=== PATIENT | female | born 1965 | race Hispanic/Latino ===

== ENCOUNTER 2024-12-01 03:28 | Inpatient (IN) | payer MEDICAID ==
[~2024-12-01] VITALS: Ht 157.5 cm; Wt 88.5 kg
[~2024-12-01 03:28] MED LIST: CYAN100010 PO; FERR325C PO
--- NOTE | 2024-12-01 03:50 | ERN ---
ED Note History of Present Illness Stated Complaint: ams Chief Complaint: Altered Mental Status Time Seen by MD: 03:34 Dictation: This is a 58-year-old obese female who apparently had a fall early this morning and was evaluated at [facility] and discharged from there. Details are not available for my review. After she got home she was noted to be agitated yelling at the neighbor's and had confusion disorderly conduct and EMS was summoned again. They brought her back to [facility] for e valuation. She answers simple questions appropriately No history of any head injury abrasions lacerations. No loss of consciousness. No facial asymmetry or motor weakness. Temperature 98.4 pulse 82 respirations 18 blood pressure 98/64 with a pulse oxi metry of 98% on room air Chronic medical problems include chronic anemia, history of a cervical mass, history of seizure disorder, metabolic encephalopathy, history of alcohol abuse- patient states that she quit many years ago Allergies: Coded Allergies: No Known Drug Allergies (Verified Allergy, 11/11/11) Home Meds Reported Medications Cyanocobalamin (Vitamin B-12) (Vitamin B-12) 1,000 Mcg Tablet.er, 1000 MCG PO DAILY, TAB 07/20/14 Ferrous Sulfate (Iron) 325 Mg Capsule.er, 325 MG PO BID, CAP 07/20/14 Past Medical History Past Medical History: Seizure, Stroke, UTI Surgical History: Appendectomy Family History: Negative Social History: Negative History: Not Applicable RN Note Reviewed/Agreed w/PFSH: Yes Review of System Dictation Constitutional: Negative for fever,chills, and weight loss Eyes: Negative for injury, pain,redness, and discharge ENT: Negative for injury,pain or swelling Cardiovascular: Negative for chest pain, palpitations, and edema Respiratory: Negative for shortness of breath, cough, and wheezing, Abdomen/GI: Negative for abdominal pain, nausea, vomiting, diarrhea, and constipation Back: Negative for injury and pain : Negative for injury, bleeding and discharge MS/Extremity: Negative for injury and deformity Skin: Negative for rash, and discoloration Neuro: Negative for headache, weakness, numbness, tingling, and seizure Psych: Negative for suicide ideation, homicidal ideation, and hallucinations Initial Vital Sign VS Vital Signs Date Time Temp Pulse Resp B/P (MAP) Pulse Ox O2 Delivery O2 Flow Rate FiO2 12/01/24 03:30 98.4 82 18 98/64 98 Room Air* 0 21 Physical Exam Dictation General: awake, alert, NAD obese female who is answering questions appropriate Head/Face: Normocephalic, atraumatic Eyes: PERRL, EOMI, vision at baseline ENT: oral cavity clear, TMs clear, no signs of infection Neck: Trachea midline, supple, no nuchal rigidity Cardiovascular: RRR, normal S1/S2, No MRGs, no JVD Respiratory: CTAB, no respiratory distress, No rales or wheezes Abdomen: Soft, non-tender, non-distended, normal bowel sounds, no guarding or rebound. Skin: Warm, dry, normal turgor, no rash MS/Extremity: Pulses equal, no cyanosis, neurovascular intact, FROM Neuro: COAx4, GCS 15, strength 5/5, CN 2-12 intact, able to move all extremities without any issues except for the right leg which she tells me is chronically difficult to raise from her previous stroke Psych: Normal behavior, mood, and affect normal Extremities-trace edema without any palpable cords, Homans sign is negative Results (Laboratory/Radiology) Laboratory/Radiology Laboratory Tests Test 12/01/24 03:54 12/01/24 04:02 12/01/24 05:09 Urine Color YELLOW (YELLOW) Urine Appearance CLOUDY (CLEAR) H Urine pH 5.5 (5.0-8.0) Urine Specific [place] 1.026 (1.001-1.031) Urine Protein NEGATIVE mg/dL (NEGATIVE) Urine Glucose (UA) NEGATIVE mg/dL (NEGATIVE) Urine Ketones NEGATIVE mg/dL (NEGATIVE) Urine Occult Blood NEGATIVE (NEGATIVE) Urine Nitrate NEGATIVE (NEGATIVE) Urine Bilirubin NEGATIVE mg/dL (NEGATIVE) Urine Urobilinogen 0.2 mg/dL (0.2-1.0) Urine Leukocyte Esterase 75 [place]/uL (NEGATIVE) H Urine RBC 6-10 /HPF (0-1) H Urine WBC 2-5 /HPF (0-1) H Urine Squamous Epithelial Cells MANY /HPF (0-2) Urine Amorphous Crystals (Auto) RARE /LPF (None Seen) Urine Bacteria None /HPF (None Seen) Urine Opiates Screen POSITIVE (NEGATIVE) H Urine Barbiturates Screen NEGATIVE (NEGATIVE) Urine Phencyclidine Screen NEGATIVE (NEGATIVE) Urine Amphetamines Screen NEGATIVE (NEGATIVE) Urine Benzodiazepines Screen POSITIVE (NEGATIVE) H Urine Cocaine Screen NEGATIVE (NEGATIVE) Urine Marijuana (THC) Screen NEGATIVE (NEGATIVE) White Blood Count 4.0 K/uL (4.8-10.8) L Red Blood Count 3.51 MIL/uL (4.00-5.50) L Hemoglobin 10.3 g/dL (12.0-16.0) L Hematocrit 31.1 % (36-48) L Mean Corpuscular Volume 88.6 fL (79-99) Mean Corpuscular Hemoglobin 29.3 pg (27.0-33.0) Mean Corpuscular Hemoglobin Concent 33.1 g/dL (32.0-36.0) Red Cell Distribution Width 14.5 % (11.0-15.5) Platelet Count 115 K/uL (130-400) L Mean Platelet Volume 11.2 fL (7.5-10.5) H Immature Granulocyte % (Auto) 0.5 % (0-1) Neutrophils (%) (Auto) 50.9 % (40.0-77.0) Lymphocytes (%) (Auto) 37.4 % (21.0-51.0) Monocytes (%) (Auto) 7.6 % (3.0-13.0) Eosinophils (%) (Auto) 2.8 % (0.0-8.0) Basophils (%) (Auto) 0.8 % (0.0-5.0) Neutrophils # (Auto) 2.0 K/uL (1.8-7.7) Lymphocytes # (Auto) 1.5 K/uL (1.0-4.8) Monocytes # (Auto) 0.3 K/uL (0.1-1.0) Eosinophils # (Auto) 0.11 K/uL (0.00-0.70) Basophils # (Auto) 0.03 K/uL (0.00-0.20) Absolute Immature Granulocyte (auto 0.02 K/uL (0-1) Nucleated Red Blood Cells 0.0 % (0.0-0.19) Sodium Level 141 mmol/L (136-145) Potassium Level 3.5 mmol/L (3.5-5.1) Chloride Level 107 mmol/L (101-111) Carbon Dioxide Level 28 mmol/L (21-32) Blood Urea Nitrogen 16 mg/dL (7-18) Creatinine 1.0 mg/dL (0.5-1.0) Glomerular Filtration Rate Calc 66 mL/min (>90) Random Glucose 98 mg/dL (70-105) Total Calcium 8.0 mg/dL (8.5-10.1) L Total Creatine Kinase 94 U/L (21-232) Salicylates Level < 2.8 mg/dL (2.8-20.0) L Acetaminophen Level < 1 mcg/mL (10-30) L Serum Alcohol 4 mg/dL (0-10) Blood Gas Specimen Type Arterial Arterial Blood pH 7.390 (7.350-7.450) Arterial Blood Partial Pressure CO2 44 mmHg (32-45) Arterial Blood Partial Pressure O2 109.2 mmHg (83.0-108.0) H Arterial Blood HCO3 25.9 mmol/L (21.0-28.0) Arterial Blood Oxygen Saturation 97.5 % (94.0-98.0) Arterial Blood Base Excess 0.7 mmol/L (-2.0-3.0) Hemoglobin (Blood Gas) 10.9 g/dL (12.0-16.0) L Sodium (Blood Gas) 140 MMOL/L (136-145) Bedside Potassium (Blood Gas) 3.7 MMOL/L (3.4-4.5) Bedside Chloride (Blood Gas) 107 MMOL/L (98-107) Bedside Glucose (Blood Gas) 107 MG/DL (65-95) H Bedside Ionized Calcium (Blood Gas) 1.14 MMOL/L (1.15-1.33) L Bedside Lactic Acid (Blood Gas) 1.10 MMOL/L (0.36-0.75) H Blood Gas Temperature 37.0 CELSIUS (35.5-37.0) Blood Gas Flow-by 3.00 L/min (0.00-15.00) Blood Gas Vent Mode NC (ROOM AIR) FiO2 28.0 % Blood Gas Specimen Comment RR STEFAN SNOW Labs Reviewed?: Yes X-RAY Comment: REASON: AMS ORDERING PHYSICIAN: ROBIN DAY MD PROCEDURE: CXR1VW - CHEST 1VW EXAM: CR Chest, 1 view CLINICAL HISTORY: Altered mental status. COMPARISON: Chest radiograph dated 06/20/2011. FINDINGS: The lungs show no infiltrates or other acute findings. No pleural effusion or pneumothorax. Interval mild cardiomegaly. No acute osseous abnormality. IMPRESSION: Interval mild cardiomegaly. No acute infiltrate, effusion, or pneumothorax. /[place] DICTATED BY: MAHIN BARROW Jr., MD DATE: 12/01/24627 ELECTRONICALLY SIGNED BY: MAHIN BARROW Jr., MD DATE: 12/01/24627 CT Scan Comment: REASON: AMS ORDERING PHYSICIAN: ROBIN DAY MD PROCEDURE: HEAD WO - CT HEAD/BRAIN W/O CONTRAST EXAM: Non-contrast CT examination of the Brain CLINICAL HISTORY: Altered mental status. TECHNIQUE: Thin collimated axial CT images of the brain were obtained with sagittal and coronal reformatted images also submitted. CT scan is done according to ALARA (As Low as Reasonably Achievable). CONTRAST USED: None. COMPARISON: None provided. FINDINGS: Moderate generalized encephalomalacia in the right cerebral hemisphere with ex-vacuo dilatation of the right lateral ventricle. Mild to moderate generalized brain atrophy and chronic microvascular ischemic white matter disease. No acute intracranial abnormality is present. No acute cortical infarction, hemorrhage, mass, or mass effect. No hydrocephalus or abnormal extra-axial fluid collections. The posterior fossa is unremarkable. The skull base and calvarium are intact. The included portions of the paranasal sinuses and mastoid air cells are clear. Impacted cerumen within the right external auditory canal. IMPRESSION: No acute intracranial abnormality is present. Moderate generalized encephalomalacia in the right cerebral hemisphere with ex-vacuo dilatation of the right lateral ventricle. Mild to moderate generalized brain atrophy and chronic microvascular ischemic white matter disease. If the clinical concern persists, recommend an MRI of the brain, including DWI, for further evaluation. /[place] DICTATED BY: MAHIN BARROW Jr., MD DATE: 12/01/24638 ELECTRONICALLY SIGNED BY: MAHIN BARROW Jr., MD DATE: 12/01/24638 ED Course ED Course Orders Procedure Category Date Status Time Cbc With Differential LAB 12/01/24 Complete 03:35 Alcohol, Blood LAB 12/01/24 Complete 03:35 Salicylate LAB 12/01/24 Complete 03:35 Acetaminophen LAB 12/01/24 Complete 03:35 Urinalysis Profile LAB 12/01/24 Complete 03:35 Chest 1vw RAD 12/01/24 Resulted 03:35 12 Lead Ekg Tracing- EKG 12/01/24 Logged Technical 03:35 0.9%Nacl 1000ml (Ns PHA 12/01/24 In Process 1000ml) 04:00 Creatine Kinase, Total LAB 12/01/24 Complete 03:35 Basic Metabolic Panel LAB 12/01/24 Complete 03:35 Drug Screen Urine LAB 12/01/24 Complete 03:35 Culture Urine SARITA 12/01/24 In Process 04:02 Ct Head/Brain W/O CT 12/01/24 Resulted Contrast 04:06 Arterial Blood Gas LAB 12/01/24 Complete Arterial + 05:09 Current Medications Medications (Trade) Dose Ordered Sig/Giorgio Route PRN Reason Start Time Stop Time Status Last Admin Dose Admin Sodium Chloride 1,000 ml @ 125 mls/hr ONCE ONCE IV 12/01/24 04:00 12/01/24 11:59 12/01/24 04:14 Vital Signs Date Time Temp Pulse Resp B/P (MAP) Pulse Ox O2 Delivery O2 Flow Rate FiO2 12/01/24 05:05 78 18 108/73 99 Nasal Cannula* 2 28 12/01/24 03:30 98.4 84 18 98/62 95 Room Air 12/01/24 03:30 98.4 82 18 98/64 98 Room Air* 0 21 We will perform diagnostic labs, advanced imaging and administer medications according to the patient's complaint. Once the results are available, will review and personally interpreted the labs to rule out any acute life- threatening emergency the trach require immediate intervention and treatment. I will then re-evaluate the patient after treatment and diagnostic exams have return to determine whether the patient requires any further testing, can safely be discharged home or need further admission to hospital for additional treatment and evaluation. Labs reviewed CBC showed a white count of 4000 hemoglobin 10.3 platelets 115. BNP 7 is significant for a potassium of 3.5 BUN and creatinine are 16 and 1.0 urinalysis showed positive leuko esterase and positive WBCs suggestive of UTI. ETOH level is 4 urine drug screen is positive for opiates and benzos. 6:[address] scan of the head without contrast was unremarkable for any acute new intracranial event but there was evidence of encephalomalacia in the right cerebral hemisphere I updated the patient on labs and CT findings and recommended admission to the hospital to monitor her mental status and treat UTI with antibiotics and she is agreeable 6:15 a.m. [facility] and further management Medical Decision Making MDM Differential diagnosis: Acute metabolic encephalopathy, concussion, substance effect, new neurological event Rationale: Tests considered and ordered secondary to shared decision making include: labs, ECG and radiology Previous outside records reviewed: Old ER visits. Risk of complication and/or morbidity or mortality of patient management: None Medications-Per medication reconciliation Need for hospitalization: Patient does meet criteria for hospitalization. Need for emergency major/minor surgery: No There are no social concerns with this patient. Prescription drug management Prescriptions will include symptomatic care Patient's prior external medical records from other ER visits were reviewed by me as indicated. Prior testing and results from previous visits were reviewed. Prior tests were taken into account with medical decision making and resource utilization, independent historian/historians were used to obtain complete medical history. I independently interpreted the test that were performed, results were reviewed by me and considered findings on radiology if ordered. Medical management and examination interpretation discussions were had by me with other qualified healthcare professionals as indicated for the patient's care. Problem List Problem List: (1) Acute metabolic encephalopathy (2) Fall from standing (3) Closed head injury (4) UTI (urinary tract infection) (5) Acute kidney injury (6) Hypotension (7) History of seizure disorder DX & DISP Disposition: Inpatient Decision to Admit Time: 06:18 Departure Impression: Primary Impression: Acute metabolic encephalopathy Additional Impressions: Fall from standing, Closed head injury, UTI (urinary tract infection), Acute kidney injury, Hypotension, History of seizure disorder Condition: Stable Additional Instructions: Patient was informed of all the diagnostic labs and procedures conducted in the emergency room today and demonstrated understanding of the results. I personally reviewed and interpreted all the diagnostic exams performed in the ER today. The patient will be admitted to the hospital for further treatment and evaluation. Disposition-admit to facility Condition-stable/guarded Course-uncertain at this time Pain status-decreased Assessment-exam unchanged Admission Certification- I certify that the patients status is appropriate and is based on my best clinical judgment and the patient's condition as documented in the medical records Referrals: SELF,REFERRAL (PCP) THOPU,ROBIN R MD Dec 01, 2024 03:50
[2024-12-01 04:01] LABS: ADD UA MICROSCOPIC YES; APPEARANCE,URINE CLOUDY (CLEAR); GLUCOSE, URINE (UA) NEGATIVE (NEGATIVE); LEUKOCYTE ESTERASE ,URINE 75 Leu/uL (NEGATIVE); NITRATE,URINE NEGATIVE (NEGATIVE); OCCULT BLOOD,URINE NEGATIVE (NEGATIVE)
[2024-12-01 04:05] LABS: SQUAMOUS EPITHELIAL CELL,UR MANY /HPF (0-2)
[2024-12-01 04:08] LABS: AMPHET/METH SCREEN,URINE NEGATIVE (NEGATIVE); BARBITURATE SCREEN, URINE NEGATIVE (NEGATIVE); CANNABINOID SCREEN,URINE NEGATIVE (NEGATIVE); COCAINE SCREEN,URINE NEGATIVE (NEGATIVE)
[2024-12-01 04:09] LABS: IMMATURE GRANULOCYTE ABSOLUTE 0.02 K/uL (0-1); NUCLEATED RED BLOOD CELLS 0.0 % (0.0-0.19); PLATELET COUNT (AUTO) 115 K/uL (130-400); RED BLOOD CELL COUNT(AUTO) 3.51 MIL/uL (4.00-5.50); RED CELL DISTRIBUTION WIDTH 14.5 % (11.0-15.5); WHITE BLOOD COUNT (AUTO) 4.0 K/uL (4.8-10.8)
[2024-12-01] MEDS: 0.9%NACL 1000ML 1,000 ML IV ONE (04:14)
[2024-12-01 04:19] LABS: CREATININE 1.0 mg/dL (0.5-1.0); GLOMERULAR FILTR. RATE CALC 66 mL/min (>90); GLUCOSE,RANDOM 98 mg/dL (70-105); SODIUM SERUM 141 mmol/L (136-145); UREA NITROGEN, BLOOD 16 mg/dL (7-18)
[2024-12-01 04:24] LABS: ALCOHOL, BLOOD 4 mg/dL (0-10); CREATINE KINASE, TOTAL 94 U/L (21-232)
[2024-12-01 05:10] LABS: ABG BASE EXCESS 0.7 mmol/L (-2.0-3.0); ABG HCO3 25.9 mmol/L (21.0-28.0); ABG OXYGEN SATURATION 97.5 % (94.0-98.0); ABG PCO2 44 mmHg (32-45); ABG PH 7.390 (7.350-7.450); CARBON MONOXIDE 0.3 % (0.5-1.5); DEVICE COMMENT RR RN MICHALE; PO2, ARTERIAL BG 109.2 mmHg (83.0-108.0); TEMPERATURE, CELSIUS BG 37.0 CELSIUS (35.5-37.0); VENT MODE, BG NC (ROOM AIR)
--- NOTE | 2024-12-01 05:29 | HMCIMG ---
EXAM: CR Chest, 1 view CLINICAL HISTORY: Altered mental status. COMPARISON: Chest radiograph dated 06/20/2011. FINDINGS: The lungs show no infiltrates or other acute findings. No pleural effusion or pneumothorax. Interval mild cardiomegaly. No acute osseous abnormality. IMPRESSION: Interval mild cardiomegaly. No acute infiltrate, effusion, or pneumothorax. /[place]
--- NOTE | 2024-12-01 05:40 | HMCIMG ---
EXAM: Non-contrast CT examination of the Brain CLINICAL HISTORY: Altered mental status. TECHNIQUE: Thin collimated axial CT images of the brain were obtained with sagittal and coronal reformatted images also submitted. CT scan is done according to ALARA (As Low as Reasonably Achievable). CONTRAST USED: None. COMPARISON: None provided. FINDINGS: Moderate generalized encephalomalacia in the right cerebral hemisphere with ex-vacuo dilatation of the right lateral ventricle. Mild to moderate generalized brain atrophy and chronic microvascular ischemic white matter disease. No acute intracranial abnormality is present. No acute cortical infarction, hemorrhage, mass, or mass effect. No hydrocephalus or abnormal extra-axial fluid collections. The posterior fossa is unremarkable. The skull base and calvarium are intact. The included portions of the paranasal sinuses and mastoid air cells are clear. Impacted cerumen within the right external auditory canal. IMPRESSION: No acute intracranial abnormality is present. Moderate generalized encephalomalacia in the right cerebral hemisphere with ex-vacuo dilatation of the right lateral ventricle. Mild to moderate generalized brain atrophy and chronic microvascular ischemic white matter disease. If the clinical concern persists, recommend an MRI of the brain, including DWI, for further evaluation. /[place]
--- NOTE | 2024-12-01 05:49 | NUR ---
PATIENT SLEEPING NO DISTRESS NOTED
--- NOTE | 2024-12-01 06:29 | EKG ---
[facility] Test Date: 2024-12-01 Test Time: 03:44:19 Pat Name: ZORAIDA SAMAYOA Department: [facility] [address] Room: 407 Gender: F Mat Weaver: [id number] Requested By: ROBIN DAY Order Number: [id number] Reading MD: Papa Rossi Measurements Intervals [place] Rate: 78 P: 9 CT: 163 QRS: 51 QRSD: 102 T: 38 QT: 403 QTc: 460 Interpretive Statements Sinus rhythm No previous ECG available for comparison Electronically Signed On 12-02-2024 12:23:31 CDT by Papa Rossi Please click the below link to view image of tracing.
--- NOTE | 2024-12-01 06:50 | NUR ---
DAISY ARRIETA AT BEDSIDE.
[2024-12-01] MEDS: 0.9%NACL 1000ML 1,000 ML IV SCH (08:28)
[2024-12-01] MEDS ORDERED: GLUCAGON 1MG KIT 1 MG ML IM PRN (08:30)
[2024-12-01] MEDS ORDERED: NITROGLYCERIN 0.4 MG SL TAB SL PRN (08:30)
[2024-12-01] MEDS ORDERED: FAMOTIDINE 20MG VIAL IV PRN (08:30)
[2024-12-01] MEDS ORDERED: PoTASSium chloRIDE 20MEQ ER 20 MEQ ERTAB PO PRN (08:30)
[2024-12-01] MEDS ORDERED: guaiFENesin-DM 200/20MG 10ML PO PRN (08:30)
[2024-12-01] MEDS ORDERED: LACTULOSE 20 GM/30 ML UDCUP PO PRN (08:30)
[2024-12-01] MEDS ORDERED: DEXTROSE 50%-WATER 50 ML DISP.SYRIN IV PRN (08:30)
[2024-12-01] MEDS ORDERED: MAG/ALUM/SIMETH 30 ML UDCUP PO PRN (08:30)
[2024-12-01] MEDS ORDERED: PoTASSium chl 10% ELIXIR 20MEQ 20 MEQ/15 ML UDCUP PO PRN (08:30)
--- NOTE | 2024-12-01 08:30 | NUR ---
PT DROWSY ALTERED UNABLE TO DO TELENEURO AT THIS TIME
--- NOTE | 2024-12-01 08:36 | HP ---
[facility] HISTORY AND PHYSICAL Date of Service: Dec 01, 2024 Time of Service: 08:23 PCP: Self-referral Admitting:Dr Seymour, Allergies: No Allergy Information Available, No Known Drug Allergies HISTORY OF PRESENT ILLNESS: [ Patient is 58 years old female who came to emergency department via EMS from home. 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 DTRs are not available for the review. After she got home she was noted to be agitated and yelling as per neighbors and she was very confused and disoriented. Neighbors called EMS and brought patient back to [facility] for evaluation. Patient is not able to answer simple questions for me neither follow any commands at this moment.] Chronic medical problems include chronic anemia, history of a cervical mass s/p polypectomy, history of seizure disorder, metabolic encephalopathy, history of alcohol abuse-patient states that she quit many years ago, anemia, appendectomy, WBC 4.0 hemoglobin 10.3 hematocrit 31.1 platelets 115. [id number] potassium 3.5 CO228 creatinine 1.0 GFR 66 calcium eight CK 94 Urinalysis positive for leukocytosis. Toxicology positive for opiates and benzodiazepines. None of the medications were given to the patient at the hospital stay at this moment.. Head CT showed moderate generalized encephalomalacia in the right cerebral hemisphere with ex vacuo dilation of the right lateral ventricle. Mild to moderate generalized brain atrophy and chronic microvascular ischemic white matter disease. Chest x-ray negative. We will admit patient under hospitalist care for further evaluation/recommendations. Once patient will be little bit more alert we will decide if week consult Psychologist for further evaluation. We will continue to monitor patient in the meantime. A.m. labs REVIEW OF SYSTEMS Unable to performed at this moment PAST MEDICAL HISTORY: [ Anemia, seizures, stroke, UTI, cervical mass ] PAST SURGICAL HISTORY: [ Appendectomy, polypectomy] PAST SOCIAL HISTORY: [ Unable to obtain from patient due to encephalopathy] FAMILY HISTORY: [ Patient lives at home alone] Coded Allergies: No Known Drug Allergies (Verified Allergy, 11/11/11) PHYSICAL EXAM GENERAL APPEARANCE: The patient is very sleepy and disoriented in no acute cardiopulmonary distress. NEUROLOGICAL: Cranial nerves II-XII grossly intact. Motor is 5/5 in bilateral upper and lower extremities proximal to distal. No sensory deficits. HEENT: Face is symmetric. Pupils are equal and reactive. Extraocular movements are intact. NECK: Supple. No JVD. No thyromegaly. No submental, submandibular, pre- /postauricular, occipital or supraclavicular lymphadenopathy. CHEST: Normal chest expansion. No Telemetry. LUNGS: Absence of any rales, rhonchi or any wheezing. CARDIOVASCULAR: Regular. S1 and S2 normal. No appreciable rubs, murmurs or gallops. ABDOMEN: Soft, nontender, and nondistended. There is no rebound, voluntary guarding, or rigidity. : Deferred. No Mccarthy. EXTREMITIES: Non-edematous and not cyanotic. No clubbing. Good capillary refill. SKIN: Multiple skin scabs on bilateral lower extremities Vital Sign (Last 24 Hours) 12/01/24 12/01/24 03:30 06:31 Temp 98.4 Pulse 90 Resp 16 B/P (MAP) 105/64 Pulse Ox 95 O2 Delivery Nasal Cannula* O2 Flow Rate 1 FiO2 24 LABS: Laboratory: Test 12/01/24 05:09 12/01/24 04:02 12/01/24 03:54 Range/Units Blood Gas Specimen Type Arterial Arterial Blood pH 7.390 7.350-7.450 Arterial Blood Partial Pressure CO2 44 32-45 mmHg Arterial Blood Partial Pressure O2 109.2 H 83.0-108.0 mmHg Arterial Blood HCO3 25.9 21.0-28.0 mmol/L Arterial Blood Oxygen Saturation 97.5 94.0-98.0 % Arterial Blood Base Excess 0.7 -2.0-3.0 mmol/L Hemoglobin (Blood Gas) 10.9 L 12.0-16.0 g/dL Sodium (Blood Gas) 140 136-145 MMOL/L Bedside Potassium (Blood Gas) 3.7 3.4-4.5 MMOL/L Bedside Chloride (Blood Gas) 107 98-107 MMOL/L Bedside Glucose (Blood Gas) 107 H 65-95 MG/DL Bedside Ionized Calcium (Blood Gas) 1.14 L 1.15-1.33 MMOL/L Bedside Lactic Acid (Blood Gas) 1.10 H 0.36-0.75 MMOL/L Blood Gas Temperature 37.0 35.5-37.0 CELSIUS Blood Gas Flow-by 3.00 0.00-15.00 L/min Blood Gas Vent Mode NC ROOM AIR FiO2 28.0 % Blood Gas Specimen Comment RR RN EDY White Blood Count 4.0 L 4.8-10.8 K/uL Red Blood Count 3.51 L 4.00-5.50 MIL/uL Hemoglobin 10.3 L 12.0-16.0 g/dL Hematocrit 31.1 L 36-48 % Mean Corpuscular Volume 88.6 79-99 fL Mean Corpuscular Hemoglobin 29.3 27.0-33.0 pg Mean Corpuscular Hemoglobin Concent 33.1 32.0-36.0 g/dL Red Cell Distribution Width 14.5 11.0-15.5 % Platelet Count 115 L 130-400 K/uL Mean Platelet Volume 11.2 H 7.5-10.5 fL Immature Granulocyte % (Auto) 0.5 0-1 % Neutrophils (%) (Auto) 50.9 40.0-77.0 % Lymphocytes (%) (Auto) 37.4 21.0-51.0 % Monocytes (%) (Auto) 7.6 3.0-13.0 % Eosinophils (%) (Auto) 2.8 0.0-8.0 % Basophils (%) (Auto) 0.8 0.0-5.0 % Neutrophils # (Auto) 2.0 1.8-7.7 K/uL Lymphocytes # (Auto) 1.5 1.0-4.8 K/uL Monocytes # (Auto) 0.3 0.1-1.0 K/uL Eosinophils # (Auto) 0.11 0.00-0.70 K/uL Basophils # (Auto) 0.03 0.00-0.20 K/uL Absolute Immature Granulocyte (auto 0.02 0-1 K/uL Nucleated Red Blood Cells 0.0 0.0-0.19 % Sodium Level 141 136-145 mmol/L Potassium Level 3.5 3.5-5.1 mmol/L Chloride Level 107 101-111 mmol/L Carbon Dioxide Level 28 21-32 mmol/L Blood Urea Nitrogen 16 7-18 mg/dL Creatinine 1.0 0.5-1.0 mg/dL Glomerular Filtration Rate Calc 66 >90 mL/min Random Glucose 98 70-105 mg/dL Total Calcium 8.0 L 8.5-10.1 mg/dL Total Creatine Kinase 94 21-232 U/L Salicylates Level < 2.8 L 2.8-20.0 mg/dL Acetaminophen Level < 1 L 10-30 mcg/mL Serum Alcohol 4 0-10 mg/dL Urine Color YELLOW YELLOW Urine Appearance CLOUDY H CLEAR Urine pH 5.5 5.0-8.0 Urine Specific [place] 1.026 1.001-1.031 Urine Protein NEGATIVE NEGATIVE mg/dL Urine Glucose (UA) NEGATIVE NEGATIVE mg/dL Urine Ketones NEGATIVE NEGATIVE mg/dL Urine Occult Blood NEGATIVE NEGATIVE Urine Nitrate NEGATIVE NEGATIVE Urine Bilirubin NEGATIVE NEGATIVE mg/dL Urine Urobilinogen 0.2 0.2-1.0 mg/dL Urine Leukocyte Esterase 75 H NEGATIVE Shaina/uL Urine RBC 6-10 H 0-1 /HPF Urine WBC 2-5 H 0-1 /HPF Urine Squamous Epithelial Cells MANY 0-2 /HPF Urine Amorphous Crystals (Auto) RARE None Seen /LPF Urine Bacteria None None Seen /HPF Urine Opiates Screen POSITIVE H NEGATIVE Urine Barbiturates Screen NEGATIVE NEGATIVE Urine Phencyclidine Screen NEGATIVE NEGATIVE Urine Amphetamines Screen NEGATIVE NEGATIVE Urine Benzodiazepines Screen POSITIVE H NEGATIVE Urine Cocaine Screen NEGATIVE NEGATIVE Urine Marijuana (THC) Screen NEGATIVE NEGATIVE DIAGNOSTICS / RADIOLOGY: [ ] ASSESSMENT: [ Acute metabolic encephalopathy POA Acute hypoxic respiratory failure POA Moderate light generalized encephalomalacia in right cerebral hemisphere with ex vacuo dilation in right lateral ventricle per CT head brain Electrolyte imbalance hypokalemia K3.5 POA Acute kidney injury POA Toxicology positive for benzodiazepines and opiates POA Possible hallucinations POA Multifactorial anemia POA Iron-deficiency anemia POA Acute complicated cystitis POA History of seizures History of stroke History of TIA History of appendectomy History of cervical mass s/p polypectomy] PLAN: [Medical-surgical floor with tele In neuro tele consulted UA positive for leukocytosis Urine culture pending Blood culture pending Toxicology positive for benzodiazepines and opiates A.m. labs Rocephin for UTI Normal saline at 100 mL/hour Chest x-ray negative CT head brain showed moderate generalized encephalomalacia in right cerebral hemisphere with ex vacuo dilation in right lateral ventricle 2D echo pending MRI brain pending Ultrasound carotid pending Ultrasound arterial pending Ultrasound venous Doppler pending CT abdomen/pelvis pending PT pending Case management pending Speech evaluation for swallowing pending Home medication reconciled by BAND SPLITTER 12/01/2024] ADVANCED CARE PLANNING 1. Which of the following were discussed? Hospice Care - Yes / No Therapeutic options - Yes / No Advance Directives - Yes / No Other discussions - 2. Discussed with who? Patient 3. Voluntary nature of this service was explained to the patient? Yes / No 4. Amount of time spent - _ more than 35 minutes 5. Reviewed by Physician? (if this service was performed by NPP) Yes / No ATTESTATION BY PHYSICIAN I have seen and examined the patient. I reviewed the documentation, medical decision making, and treatment plan as noted by the mid-level provider above. I agree with the findings and plan of care. LAMONT SEYMOUR MD, [address] MAINTENA[employer]CE SUPERVISOR Dec 01, 2024 08:36
--- NOTE | 2024-12-01 09:00 | NUR ---
PT NOT LETTING ULTRASOUND DO EXAM, STATES NO MOVES OVER ARGUING WITH YOU.
--- NOTE | 2024-12-01 09:30 | NUR ---
TELE PSYCH DONE
--- NOTE | 2024-12-01 09:50 | NUR ---
TELE NUERO NOT DONE YET PT IS DROWSY AND AND UNABLE TO ANSWER QUESTIONS. PER HOSPITALIST TO DO PSYCH EVALUATION
--- NOTE | 2024-12-01 09:54 | CONS ---
CONSULT NOTE: Reason for consult: altered Reason for medical admission: Patient is 58 years old female who came to emergency department via EMS from home. 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 DTRs are not available for the review. After she got home she was noted to be agitated and yelling as per neighbors and she was very confused and disoriented. Neighbors called EMS and brought patient back to [facility] for evaluation. Patient is not able to answer simple questions for me neither follow any commands at this moment.] Chronic medical problems include chronic anemia, history of a cervical mass s/p polypectomy, history of seizure disorder, metabolic encephalopathy, history of alcohol abuse-patient states that she quit many years ago, anemia, appendectomy, WBC 4.0 hemoglobin 10.3 hematocrit 31.1 platelets 115. [id number] potassium 3.5 CO228 creatinine 1.0 GFR 66 calcium eight CK 94 Urinalysis positive for leukocytosis. Toxicology positive for opiates and benzodiazepines. None of the medications were given to the patient at the hospital stay at this moment.. Head CT showed moderate generalized encephalomalacia in the right cerebral hemisphere with ex vacuo dilation of the right lateral ventricle. Mild to moderate generalized brain atrophy and chronic microvascular ischemic white matter disease. Chest x-ray negative. We will admit patient under hospitalist care for further evaluation/recommendations. Once patient will be little bit more alert we will decide if week consult Psychologist for further evaluation. We will continue to monitor patient in the meantime. A.m. labs UDS + for benzos and opiates CC: "not that great" HPI: Patient is very drowsy and lethargic. She says she is "not that great." She cannot recall the events leading up to admission. She says "I don't know what happened." She denies alcohol use. She reports she does take medications for anxiety but she does not remember the name. She also reports that she takes medication for pain. She thinks she only takes Tylenol for pain. She denied any recent medication changes or getting any pills from friends or family. She is very slow to answer. She denied sadness or depression. She denied anxiety or panic. She says "I already take pills for that." When asked about seeing things or hearing voices she said, "I take medicine for that too." She cannot give any information about her medical hx or medication information. She reports that she does have short term memory problems but she denied being dx with dementia. She does not have a psychiatrist or a therapist. She says she does not have a PCP. She says she gets her medication from "the doctor at the home where I stay at." She says she cannot pronounce the name of the place she lives. She reports she hasn't slept well the past 2 days but she cannot clearly tell me why. She says something about wanting to get out of the home she stays at because she has been there for 5 years. She has been eating well and drinking water. No statements or thoughts of harm to self or others. Patient reports she has 4 children, 2 boys and 2 girls. She is not and says she has never been . She is not currently employed. She says she is disabled due to hx of stroke. She says she has a brother and a sister but they are not part of her life. She cannot tell me where she is currently. She can report the city and state. She reports the month as February. She cannot tell me the year and she says this is because "I have been in the home for so many years." She can report current president as [place] but she cannot report the last president. When asked to add a nickel, dime and quarter she said, "I don't have any money right now." She was not able to do the calculation. She says she has trouble with things like this since her stroke. Current/home psychiatric medications: no home med list currently Vital Signs Date Time Temp Pulse Resp B/P (MAP) Pulse Ox O2 Delivery O2 Flow Rate FiO2 12/01/24 09:20 98.4 88 16 105/54 95 Nasal Cannula* 2 28 Current Medications Medications Dose Ordered Sig/Giorgio Start Time Stop Time Status Last Admin Sodium Chloride 1,000 ml @ 125 mls/hr ONCE ONCE 12/01/24 04:00 12/01/24 11:59 12/01/24 04:14 Insulin Human Regular INSULIN SLIDING SCAL... ACHS 12/01/24 11:30 12/31/24 11:29 Dextrose 50 ml AD PRN 12/01/24 08:30 12/31/24 08:29 Glucagon 1 mg AD PRN 12/01/24 08:30 12/31/24 08:29 Potassium Chloride 100 ml @ 100 mls/hr AD PRN 12/01/24 08:30 12/31/24 08:29 Potassium Chloride 20 meq AD PRN 12/01/24 08:30 12/31/24 08:29 Potassium Chloride 20 meq AD PRN 12/01/24 08:30 12/31/24 08:29 Magnesium Sulfate 50 ml @ 0 mls/hr PROTOCOL PRN 12/01/24 08:30 12/31/24 08:29 Diphenhydramine HCl 25 mg Q6H PRN 12/01/24 08:30 12/31/24 08:29 Acetaminophen 650 mg Q6H PRN 12/01/24 08:30 12/31/24 08:29 Ondansetron HCl 4 mg Q6H PRN 12/01/24 08:30 12/31/24 08:29 Zolpidem Tartrate 5 mg HS PRN 12/01/24 08:30 12/31/24 08:29 Al Hydroxide/Mg Hydroxide 30 ml Q6H PRN 12/01/24 08:30 12/31/24 08:29 Lactulose 20 gm BID PRN 12/01/24 08:30 12/31/24 08:29 Nitroglycerin 0.4 mg PROTOCOL PRN 12/01/24 08:30 12/31/24 08:29 Guaifenesin/ Dextromethorphan 10 ml Q4H PRN 12/01/24 08:30 12/31/24 08:29 Heparin Sodium (Porcine) 5,000 unit BID 12/01/24 09:00 12/31/24 08:59 Acetaminophen 650 mg Q6H PRN 12/01/24 08:30 12/31/24 08:29 Ketorolac Tromethamine 15 mg Q8H PRN 12/01/24 08:30 12/06/24 08:29 Acetaminophen/ Hydrocodone Bitart 1 tab Q6H PRN 12/01/24 08:30 12/06/24 08:29 Morphine Sulfate 1 mg Q4H PRN 12/01/24 08:30 12/08/24 08:29 Sodium Chloride 1,000 ml @ 100 mls/hr Q10H 12/01/24 08:30 12/31/24 08:29 12/01/24 08:28 Hydralazine HCl 10 mg Q6H PRN 12/01/24 08:30 12/31/24 08:29 Famotidine 20 mg BID 12/01/24 09:00 12/31/24 08:59 Potassium Chloride 100 ml @ 50 mls/hr ONCE ONCE 12/01/24 08:30 12/01/24 10:29 Ceftriaxone Sodium 2 gm Q24H 12/02/24 09:00 12/12/24 08:59 Vitamin B Complex 1,000 mcg DAILY 12/01/24 09:00 12/31/24 08:59 Ferrous Sulfate 325 mg BID 12/01/24 09:00 12/31/24 08:59 Laboratory Tests Test 12/01/24 03:54 12/01/24 04:02 12/01/24 05:09 12/01/24 09:32 Urine Color YELLOW (YELLOW) Urine Appearance CLOUDY (CLEAR) H Urine pH 5.5 (5.0-8.0) Urine Specific [place] 1.026 (1.001-1.031) Urine Protein NEGATIVE mg/dL (NEGATIVE) Urine Glucose (UA) NEGATIVE mg/dL (NEGATIVE) Urine Ketones NEGATIVE mg/dL (NEGATIVE) Urine Occult Blood NEGATIVE (NEGATIVE) Urine Nitrate NEGATIVE (NEGATIVE) Urine Bilirubin NEGATIVE mg/dL (NEGATIVE) Urine Urobilinogen 0.2 mg/dL (0.2-1.0) Urine Leukocyte Esterase 75 Shaina/uL (NEGATIVE) H Urine RBC 6-10 /HPF (0-1) H Urine WBC 2-5 /HPF (0-1) H Urine Squamous Epithelial Cells MANY /HPF (0-2) Urine Amorphous Crystals (Auto) RARE /LPF (None Seen) Urine Bacteria None /HPF (None Seen) Urine Opiates Screen POSITIVE (NEGATIVE) H Urine Barbiturates Screen NEGATIVE (NEGATIVE) Urine Phencyclidine Screen NEGATIVE (NEGATIVE) Urine Amphetamines Screen NEGATIVE (NEGATIVE) Urine Benzodiazepines Screen POSITIVE (NEGATIVE) H Urine Cocaine Screen NEGATIVE (NEGATIVE) Urine Marijuana (THC) Screen NEGATIVE (NEGATIVE) White Blood Count 4.0 K/uL (4.8-10.8) L Red Blood Count 3.51 MIL/uL (4.00-5.50) L Hemoglobin 10.3 g/dL (12.0-16.0) L Hematocrit 31.1 % (36-48) L Mean Corpuscular Volume 88.6 fL (79-99) Mean Corpuscular Hemoglobin 29.3 pg (27.0-33.0) Mean Corpuscular Hemoglobin Concent 33.1 g/dL (32.0-36.0) Red Cell Distribution Width 14.5 % (11.0-15.5) Platelet Count 115 K/uL (130-400) L Mean Platelet Volume 11.2 fL (7.5-10.5) H Immature Granulocyte % (Auto) 0.5 % (0-1) Neutrophils (%) (Auto) 50.9 % (40.0-77.0) Lymphocytes (%) (Auto) 37.4 % (21.0-51.0) Monocytes (%) (Auto) 7.6 % (3.0-13.0) Eosinophils (%) (Auto) 2.8 % (0.0-8.0) Basophils (%) (Auto) 0.8 % (0.0-5.0) Neutrophils # (Auto) 2.0 K/uL (1.8-7.7) Lymphocytes # (Auto) 1.5 K/uL (1.0-4.8) Monocytes # (Auto) 0.3 K/uL (0.1-1.0) Eosinophils # (Auto) 0.11 K/uL (0.00-0.70) Basophils # (Auto) 0.03 K/uL (0.00-0.20) Absolute Immature Granulocyte (auto 0.02 K/uL (0-1) Nucleated Red Blood Cells 0.0 % (0.0-0.19) Sodium Level 141 mmol/L (136-145) Potassium Level 3.5 mmol/L (3.5-5.1) Chloride Level 107 mmol/L (101-111) Carbon Dioxide Level 28 mmol/L (21-32) Blood Urea Nitrogen 16 mg/dL (7-18) Creatinine 1.0 mg/dL (0.5-1.0) Glomerular Filtration Rate Calc 66 mL/min (>90) Random Glucose 98 mg/dL (70-105) Total Calcium 8.0 mg/dL (8.5-10.1) L Total Creatine Kinase 94 U/L (21-232) Salicylates Level < 2.8 mg/dL (2.8-20.0) L Acetaminophen Level < 1 mcg/mL (10-30) L Serum Alcohol 4 mg/dL (0-10) Blood Gas Specimen Type Arterial Arterial Blood pH 7.390 (7.350-7.450) Arterial Blood Partial Pressure CO2 44 mmHg (32-45) Arterial Blood Partial Pressure O2 109.2 mmHg (83.0-108.0) H Arterial Blood HCO3 25.9 mmol/L (21.0-28.0) Arterial Blood Oxygen Saturation 97.5 % (94.0-98.0) Arterial Blood Base Excess 0.7 mmol/L (-2.0-3.0) Hemoglobin (Blood Gas) 10.9 g/dL (12.0-16.0) L Sodium (Blood Gas) 140 MMOL/L (136-145) Bedside Potassium (Blood Gas) 3.7 MMOL/L (3.4-4.5) Bedside Chloride (Blood Gas) 107 MMOL/L (98-107) Bedside Glucose (Blood Gas) 107 MG/DL (65-95) H Bedside Ionized Calcium (Blood Gas) 1.14 MMOL/L (1.15-1.33) L Bedside Lactic Acid (Blood Gas) 1.10 MMOL/L (0.36-0.75) H Blood Gas Temperature 37.0 CELSIUS (35.5-37.0) Blood Gas Flow-by 3.00 L/min (0.00-15.00) Blood Gas Vent Mode NC (ROOM AIR) FiO2 28.0 % Blood Gas Specimen Comment RR STEFAN SNOW Lactic Acid Level 1.5 mmol/L (0.8-2.5) Ammonia 16 umol/L (11-32) MSE: Patient is a 58 yo female. She is drowsy and lethargic. She mostly keeps her eyes closed. She is a bit disheveled. Speech is latent but fluent once she starts talking. Gait is not evaluated. No AIMS or psychomotor disturbances. Mood is "not that great" and affect is neutral and reactive. Thought process is a bit tangential and hard to follow at times but she does answer with relevant responses. Thought content is negative for SI, HI, AVH. Nurse reports she has been talking to herself. Memory and cognition have some limitations. Insight and judgment limited. Assessment: Encephalopathy - etiology unclear Hx of CVA Anxiety per hx Recommendations: -Patient is not currently suicidal, homicidal or psychotic and she does not require inpatient psychiatric admission at this time -Recommend that inpatient team get home medication list and check PDMP to determ ine if patient is on benzos and opiates and what doses. -If patient was taking benzos at home recommend restarting at a lower dose, tapering and stopping prior to DC -Recommend CIWA protocol and PRN Ativan for possible benzo withdrawal until home medications are determined and a plan is in place -Monitor for opiate withdrawal as UDS was + for opiates -Consider additional head imaging (MRI) -Consider neurology consult -Recommend Seroquel 12.5-25 mg BID PRN for acute agitation, aggression or psychosis -Psychiatry signing off *20 mins was spent [id number] with patient and 25 mins was spent on chart review and documentation DARRICK ROBIN DO Dec 01, 2024 09:54
[2024-12-01 09:56] LABS: % IRON SATURATION 11.0 % (22-44); IRON, SERUM 25.0 mcg/dL (50-170)
[2024-12-01] MEDS: FAMOTIDINE 20MG VIAL IV SCH (10:19)
[2024-12-01] MEDS: CYANOCOBALAMIN (VITAMIN B-12) 1,000 MCG TABLET PO SCH (10:22)
[2024-12-01] MEDS: FERROUS SULFATE 325 MG TABLET.DR PO SCH (10:22)
--- NOTE | 2024-12-01 14:50 | NUR ---
SW attempted to meet with pt for IA however pt was very confused. SW contacted contact on facesheet Donny Black [phone] and there was no answer nor option to leave a voicemail.
--- NOTE | 2024-12-01 15:09 | NUR ---
PATRICIA was provided with contact information for a An ([facility]) [phone] however there was no answer. PATRICIA left a detailed voicemail with a request for a call back
--- NOTE | 2024-12-01 15:40 | NUR ---
SPEECH NOTE: HANDY WORKER arrived to evaluate patient; however, as per nurse Renetta, patient with improved AMS and tolerating oral intake with no s/s of aspiration. Nurse reports evaluation not warranted at this time and will cancel order. Please re-consult services if any s/s of aspiration arise. All questions answered. Addendum: 12/01/[address]ORAYA Amended: Links added.
--- NOTE | 2024-12-01 16:19 | NUR ---
BLOOD GLUCOSE 101. NO INSULIN COVERAGE NEEDED AT THIS TIME.
[2024-12-01] MEDS ORDERED: GABA-529 PO (16:30)
[2024-12-01] MEDS ORDERED: SERT-438 PO (16:30)
[2024-12-01] MEDS ORDERED: LEVE750T10 PO (16:30)
[2024-12-01] MEDS ORDERED: HYDR-3422 PO (16:30)
[2024-12-01] MEDS ORDERED: LACO200T14 PO (16:30)
[2024-12-01] MEDS ORDERED: PANT40TA54 PO (16:30)
[2024-12-01] MEDS ORDERED: ATOR40TA71 PO (16:30)
[2024-12-01] MEDS ORDERED: ALPR0.5T8 PO (16:30)
[2024-12-01] MEDS ORDERED: IBUP-1492 PO (16:30)
[2024-12-01] MEDS ORDERED: MIDO10TA3 PO (16:30)
[2024-12-01] MEDS ORDERED: LACT-441 PO (16:30)
--- NOTE | 2024-12-01 16:30 | NUR ---
HOME MEDICATIONS HAVE BEEN REVIEWED. PENDING TO BE RECONSILED BY ATTENDING PHYSICIAN.
--- NOTE | 2024-12-01 16:53 | NUR ---
DCP:PENDING SW attempted to meet with pt however pt was confused, was able to make contact with home health nurse An [phone] that has been working with her for more information. Nurse states that pt use to reside at [facility] for 4 yrs however her insurance was no longer able to cover stay so she was dc to her own apartment 10days ago. Pt lives alone and home health goes over every day. M- she goes from 11-4pm and weekends from 11-12:30 and they assist with all ADLs. Pt uses a wheelchair at home to ambulate. It is reported that pt does not have any family and no one has been over to visit her. If pt is to DC home, home health nurse states that she can help with transportation. Addendum: 12/01/24 at 1657 by MELISSA HERRERA SS Amended: Links added.
--- NOTE | 2024-12-01 17:05 | NUR ---
PATIENT HAD A BOWEL MOVEMENT. GAVE HER PERICARE. SKIN LOOKS INTACT, NO SIGNS OF MACERATIONS. NO VISIBLE BLOOD IN STOOLS.
--- NOTE | 2024-12-01 17:26 | NUR ---
CT ATTEMPT MADE, PT REFUSED CT SCAN AND BECAME COMBATIVE. SIMON FERREIRA AWARE. CT ON HOLD UNTIL FURTHER INSTRUCTIONS.
--- NOTE | 2024-12-01 21:02 | NUR ---
PATIENT STILL REFUSED TO HAVE HER CT DONE WELL HER IV TO BE REINSERTED ALTHOUGH IT IS STILL FLUSHING WELL
--- NOTE | 2024-12-01 21:13 | NUR ---
EMERGENCY CONTACT PROVIDER: NATASHA WESTFALL [phone]
[2024-12-01] MEDS: HALOPERIDOL INJ 5 MG/ML VIAL IM PRN (22:33)
[2024-12-01] MEDS: HALOPERIDOL INJ 5 MG/ML VIAL IM ONE (22:34)
--- NOTE | 2024-12-01 22:50 | NUR ---
PT BECAME VERY AGIGATED AND STARTED SHOUTING THAT OTHER PATIENTS ARE GETTING AGITATED WELL - MADE DR DAY AWARE, ORDERS MADE
--- NOTE | 2024-12-01 23:04 | NUR ---
CALLED FOR A REPORT FLOOR NURSE NOT AVAIL YET, AW FOR HER CALLBACK
--- NOTE | 2024-12-01 23:51 | NUR ---
CHRIST CRUZ NP IF SHE IS HAPPY FOR PRN AGITATION MEDS
[2024-12-01 23:55] VITALS: O2SAT 95
--- NOTE | 2024-12-01 23:55 | NUR ---
ADMISSION NOTE PATIENT ADMITTED, REPORT RECEIVED FROM STEFAN MARROQUIN. PATIENT CONFUSED, RESPONDING TO MINIMAL QUESTIONS AT THIS TIME. ORIENTED TO SELF ONLY. PER REPORT, HALDOL GIVEN IN ER DUE TO AGITATION, SEE EMAR. PATIENT SETTLED INTO BED, BED ALARM ARMED AT THIS TIME, NO OBVIOUS PHYSICAL INJURIES. LINE OF SIGHT OF PATIENT TO THE NURSE'S STATION. DOOR LEFT OPEN FOR SAFETY PRECAUTIONS.
[2024-12-02] VITALS (8 sets, daily range): BP systolic 102–131; BP diastolic 45–74; PULSE 65–81; RESP 17–20; TEMP 97.5–98.7; O2SAT 94
[2024-12-02] MEDS ORDERED: HALOPERIDOL INJ 5 MG/ML VIAL IM PRN
[2024-12-02] MEDS: HYDROcodone/APAP 5/325 1 TAB TABLET PO PRN (03:41)
--- NOTE | 2024-12-02 03:50 | NUR ---
AGITATION PATIENT STARTING TO EXHIBIT AGITATION, REFUSING MEDICATION, HAD TO BE CONVINCED TO TAKE PO PAIN MEDICINE, STATING IT "WAS NOT WHAT SHE TAKES AT HOME". PATIENT ATTEMPTED TO BE ORIENTED, PATIENT ACCUSING RN OF LYING ABOUT MEDICATION. PATIENT TAUGHT THAT MEDICATION IN THE HOSPITAL MEDICATION ORDERED FOR PAIN IS DIFFERENT THAN THE MEDICATION SHE TAKES AT HOME. PATIENT TOOK AND SWALLOWED NORCO PO, SEE EMAR. COPE, PCT GIVING PATIENT REQUESTED FOOD AND SNACKS.
[2024-12-02 06:29] LABS: IMMATURE GRANULOCYTE ABSOLUTE 0.03 K/uL (0-1); NUCLEATED RED BLOOD CELLS 0.0 % (0.0-0.19); PLATELET COUNT (AUTO) 115 K/uL (130-400); RED BLOOD CELL COUNT(AUTO) 3.33 MIL/uL (4.00-5.50); RED CELL DISTRIBUTION WIDTH 14.0 % (11.0-15.5); WHITE BLOOD COUNT (AUTO) 4.4 K/uL (4.8-10.8)
[2024-12-02] MEDS ORDERED: COMPOUND IV REFRIGERATED 1 EACH IVSOLN MISC PRN (07:00)
[2024-12-02] MEDS ORDERED: PHARMACY COMMUNICATION MISC PRN (07:00)
[2024-12-02 07:22] LABS: ASPARTATE AMINOTRANSFERASE 21.0 U/L (10-37); CREATINE KINASE, TOTAL 121.0 U/L (21-232); CREATININE 1.0 mg/dL (0.5-1.0); GLOMERULAR FILTR. RATE CALC 66.0 mL/min (>90); GLUCOSE,RANDOM 109.0 mg/dL (70-105); SODIUM SERUM 143.0 mmol/L (136-145); TOTAL PROTEIN, SERUM 5.8 g/dL (6.0-8.3); UREA NITROGEN, BLOOD 15.0 mg/dL (7-18)
[2024-12-02] MEDS: MULTIVITAMIN TABLET PO SCH (09:00)
--- NOTE | 2024-12-02 09:00 | NUR ---
BEHAVIOR Patient pulling at hair. Restless. Easily directed and distracted, but requires frequent intervention. Side rails padded for safety, hx of seizures. Bed in low position. Patient demonstrates ability to use call light. Personal belongings and call light within reach. Toileting/hygeine needs addressed.
--- NOTE | 2024-12-02 10:08 | HMCSR ---
APPROVED REPORT EXAM: Two-dimensional and M-mode echocardiogram with Doppler and color Doppler. INDICATION ICD: Heart Failure 2D Dimensions RVDd3.7 cmLVEF(%)64.8 (>50%) IVSd0.6 (0.7-1.1cm)FS(%)35 % LVDd4.5 (3.8-5.6cm)LA (2D)3.6 (1.6-4.0cm) PWd1.1 (0.7-1.1cm)Ao Root(2D)2.5 (2.0-3.7cm) LVDs2.9 (2.5-4.0cm)LVOT diam1.8 (1.8-2.4cm) Tricuspid Valve TR Vmax2.4 m/sRVSP23.3 mmHg TR Peak GR24.0 mmHg Left Ventricle Left ventricular cavity size is normal. There is normal LV segmental wall motion. There is normal lef t ventricular wall thickness. LVEF is visually estimated at 55-60%. Not assessed Right Ventricle The right ventricle is normal size. The right ventricular systolic function appears normal. Atria The left atrium size is normal. Aortic Valve Aortic valve is not well visualized but no significant valvular abnormalities noted. No aortic regurg itation is present. There is no aortic valvular stenosis. Mitral Valve The mitral valve is normal in structure. Mitral regurgitation is trace by color doppler. Tricuspid Valve The tricuspid valve is normal in structure. There is trivial tricuspid valve regurgitation noted. Pulmonic Valve Pulmonic valve is not well visualized. There is no pulmonic valvular regurgitation. Great Vessels The aortic root is normal in size. The IVC was not visualized. Pericardium No pericardial effusion. Other Information Quality : Limited. Technically limited study due to altered mental status. Conclusion Left ventricular cavity size is normal. LVEF is visually estimated at 55-60% with normal LV segmental wall motion. Diastology was not assesed on this study. The right ventricular systolic function appears normal. Both atria are normal in size. No hemodynamically significant valvular abnormalities. No pericardial effusion.
--- NOTE | 2024-12-02 10:11 | NUR ---
BEHAVIOR Patient pulling at IV site and tubing. Easily distracted, but requires considerable attention. Fall, safety measures in place. Personal needs/hygeine/toileting addressed.
--- NOTE | 2024-12-02 11:28 | PN ---
[facility] PROGRESS NOTE Date of Service: Dec 02, 2024 Time of Service: 11:22 Attending doctor Bang SUBJECTIVE: [ 12/01 Patient is 58 years old female who came to emergency department via EMS from home. 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 DTRs are not available for the review. After she got home she was noted to be agitated and yelling as per neighbors and she was very confused and disoriented. Neighbors called EMS and brought patient back to [facility] for evaluation. Patient is not able to answer simple questions for me neither follow any commands at this moment.] Chronic medical problems include chronic anemia, history of a cervical mass s/p polypectomy, history of seizure disorder, metabolic encephalopathy, history of alcohol abuse-patient states that she quit many years ago, anemia, appendectomy, WBC 4.0 hemoglobin 10.3 hematocrit 31.1 platelets 115. [id number] potassium 3.5 CO228 creatinine 1.0 GFR 66 calcium eight CK 94 Urinalysis positive for abrahan kocytosis. Toxicology positive for opiates and benzodiazepines. None of the medications were given to the patient at the hospital stay at this moment.. Head CT showed moderate generalized encephalomalacia in the right cerebral hemisphere with ex vacuo dilation of the right lateral ventricle. Mild to moderate generalized brain atrophy and chronic microvascular ischemic white mat ter disease. Chest x-ray negative. We will admit patient under hospitalist care for further evaluation/recommendations. Once patient will be little bit more alert we will decide if week consult Psychologist for further evaluation. We will continue to monitor patient in the meantime. A.m. labsv 12/02 patient was seen by nurse practitioner and physician during rounding in room 407. Patient's 2D echo came back EF55 to 60% normal function. MRI brain pending ultrasound carotid pending ultrasound arterial pending ultrasound venous pending CT abdomen/pelvis pending. Urine culture and blood culture still pending. WBC is trending down. Patient was evaluated by the psychologist and is recommending [place] protocol start patient on Seroquel 12.5 mg b.i.d. PRN for agitation. At this moment we will reconsult blue smiley neuro for confusion/altered mental status. We will also reconsult psychologist for re- evaluation of the home medications. Patient right now it is more alert and oriented and more talkative compared to yesterday were she was very disoriented and extremely sleepy. Patient is more calm but does not know where she is at she believes she is at home and also believe that nurse practitioner who saw her today was her family member who underwent a surgery. Home medications reconciled We will continue to monitor patient in the meantime. A.m. labs.] REVIEW OF SYSTEMS PHYSICAL EXAM GENERAL APPEARANCE: The patient is alert and oriented x2 to self only in no acute cardiopulmonary distress. NEUROLOGICAL: Cranial nerves II-XII grossly intact. Motor is 5/5 in bilateral upper and lower extremities proximal to distal. No sensory deficits. HEENT: Face is symmetric. Pupils are equal and reactive. Extraocular movements are intact. NECK: Supple. No JVD. No thyromegaly. No submental, submandibular, pre- /postauricular, occipital or supraclavicular lymphadenopathy. CHEST: Normal chest expansion. No Telemetry. LUNGS: Absence of any rales, rhonchi or any wheezing. CARDIOVASCULAR: Regular. S1 and S2 normal. No appreciable rubs, murmurs or gallops. ABDOMEN: Soft, nontender, and nondistended. There is no rebound, voluntary guarding, or rigidity. : Deferred. No Mccarthy. EXTREMITIES: Non-edematous and not cyanotic. No clubbing. Good capillary refill. SKIN: Multiple skin scabs on bilateral lower extremities Vital Signs (last 8hr) Date Time Temp Pulse Resp B/P (MAP) Pulse Ox O2 Delivery O2 Flow Rate FiO2 12/02/24 07:45 98.8 81 18 116/59 94 Room Air 12/02/24 04:00 98.4 74 17 102/61 93 Room Air 21 LABS: Laboratory: Test 12/02/24 10:42 12/02/24 06:14 12/01/24 10:32 12/01/24 09:32 Range/Units Whole Blood Glucose 111 H 70-110 MG/DL White Blood Count 4.4 L 4.8-10.8 K/uL Red Blood Count 3.33 L 4.00-5.50 MIL/uL Hemoglobin 9.8 L 12.0-16.0 g/dL Hematocrit 29.3 L 36-48 % Mean Corpuscular Volume 88.0 79-99 fL Mean Corpuscular Hemoglobin 29.4 27.0-33.0 pg Mean Corpuscular Hemoglobin Concent 33.4 32.0-36.0 g/dL Red Cell Distribution Width 14.0 11.0-15.5 % Platelet Count 115 L 130-400 K/uL Mean Platelet Volume 10.6 H 7.5-10.5 fL Immature Granulocyte % (Auto) 0.7 0-1 % Neutrophils (%) (Auto) 47.8 40.0-77.0 % Lymphocytes (%) (Auto) 41.2 21.0-51.0 % Monocytes (%) (Auto) 6.9 3.0-13.0 % Eosinophils (%) (Auto) 2.7 0.0-8.0 % Basophils (%) (Auto) 0.7 0.0-5.0 % Neutrophils # (Auto) 2.1 1.8-7.7 K/uL Lymphocytes # (Auto) 1.8 1.0-4.8 K/uL Monocytes # (Auto) 0.3 0.1-1.0 K/uL Eosinophils # (Auto) 0.12 0.00-0.70 K/uL Basophils # (Auto) 0.03 0.00-0.20 K/uL Absolute Immature Granulocyte (auto 0.03 0-1 K/uL Nucleated Red Blood Cells 0.0 0.0-0.19 % Sodium Level 143 136-145 mmol/L Potassium Level 4.4 3.5-5.1 mmol/L Chloride Level 108 101-111 mmol/L Carbon Dioxide Level 27 21-32 mmol/L Blood Urea Nitrogen 15 7-18 mg/dL Creatinine 1.0 0.5-1.0 mg/dL Glomerular Filtration Rate Calc 66 >90 mL/min Random Glucose 109 H 70-105 mg/dL Hemoglobin A1c 5.2 4.0-6.0 % Estimated Average Glucose (eAG) 103 70-126 mg/dL Lactic Acid Level 1.6 0.8-2.5 mmol/L Total Calcium 7.9 L 8.5-10.1 mg/dL Magnesium Level 1.30 L 1.80-2.40 mg/dL Total Bilirubin 0.3 0.2-1.0 mg/dL Direct Bilirubin 0.1 0.0-0.3 mg/dL Aspartate Amino Transf (AST/SGOT) 21 10-37 U/L Alanine Aminotransferase (ALT/SGPT) 19 12-78 U/L Alkaline Phosphatase 94 50-136 U/L Ammonia 21 11-32 umol/L Total Creatine Kinase 121 # 21-232 U/L B-Type Natriuretic Peptide 158 H 0-100 pg/mL Total Protein 5.8 L 6.0-8.3 g/dL Albumin 2.6 L 3.5-5.0 g/dL Amylase Level 38 25-115 U/L Lipase 43 16-77 U/L Procalcitonin < 0.05 L 0.05-0.5 ng/mL Thyroid Stimulating Hormone (TSH) 1.71 # 0.36-3.74 uIU/mL Serum Alcohol < 3 0-10 mg/dL SARS-CoV-2 Antigen (Rapid) PRESUMPTIVE NEGATIVE NEGATIVE Iron Level 25 #L 50-170 mcg/dL Total Iron Binding Capacity 226 L 250-450 mcg/dL Percent Iron Saturation 11.0 L 22-44 % Test 12/01/24 05:09 12/01/24 04:02 12/01/24 03:54 Range/Units Blood Gas Specimen Type Arterial Arterial Blood pH 7.390 7.350-7.450 Arterial Blood Partial Pressure CO2 44 32-45 mmHg Arterial Blood Partial Pressure O2 109.2 H 83.0-108.0 mmHg Arterial Blood HCO3 25.9 21.0-28.0 mmol/L Arterial Blood Oxygen Saturation 97.5 94.0-98.0 % Arterial Blood Base Excess 0.7 -2.0-3.0 mmol/L Hemoglobin (Blood Gas) 10.9 L 12.0-16.0 g/dL Sodium (Blood Gas) 140 136-145 MMOL/L Bedside Potassium (Blood Gas) 3.7 3.4-4.5 MMOL/L Bedside Chloride (Blood Gas) 107 98-107 MMOL/L Bedside Glucose (Blood Gas) 107 H 65-95 MG/DL Bedside Ionized Calcium (Blood Gas) 1.14 L 1.15-1.33 MMOL/L Bedside Lactic Acid (Blood Gas) 1.10 H 0.36-0.75 MMOL/L Blood Gas Temperature 37.0 35.5-37.0 CELSIUS Blood Gas Flow-by 3.00 0.00-15.00 L/min Blood Gas Vent Mode NC ROOM AIR FiO2 28.0 % Blood Gas Specimen Comment RR RN EDY Salicylates Level < 2.8 L 2.8-20.0 mg/dL Acetaminophen Level < 1 L 10-30 mcg/mL Urine Color YELLOW YELLOW Urine Appearance CLOUDY H CLEAR Urine pH 5.5 5.0-8.0 Urine Specific [place] 1.026 1.001-1.031 Urine Protein NEGATIVE NEGATIVE mg/dL Urine Glucose (UA) NEGATIVE NEGATIVE mg/dL Urine Ketones NEGATIVE NEGATIVE mg/dL Urine Occult Blood NEGATIVE NEGATIVE Urine Nitrate NEGATIVE NEGATIVE Urine Bilirubin NEGATIVE NEGATIVE mg/dL Urine Urobilinogen 0.2 0.2-1.0 mg/dL Urine Leukocyte Esterase 75 H NEGATIVE Abrahan/uL Urine RBC 6-10 H 0-1 /HPF Urine WBC 2-5 H 0-1 /HPF Urine Squamous Epithelial Cells MANY 0-2 /HPF Urine Amorphous Crystals (Auto) RARE None Seen /LPF Urine Bacteria None None Seen /HPF Urine Opiates Screen POSITIVE H NEGATIVE Urine Barbiturates Screen NEGATIVE NEGATIVE Urine Phencyclidine Screen NEGATIVE NEGATIVE Urine Amphetamines Screen NEGATIVE NEGATIVE Urine Benzodiazepines Screen POSITIVE H NEGATIVE Urine Cocaine Screen NEGATIVE NEGATIVE Urine Marijuana (THC) Screen NEGATIVE NEGATIVE Current Medications Medications (Trade) Dose Ordered Sig/Giorgio Route PRN Reason Start Time Stop Time Status Last Admin Dose Admin Acetaminophen (TYLenol 325MG TAB) 650 mg Q4H PRN PO MILD PAIN (1-3) 12/01/24 08:30 12/01/24 08:23 DC Acetaminophen (TYLenol 325MG TAB) 650 mg Q6H PRN PO TEMPERATURE GREATER THAN 101.5 12/01/24 08:30 12/02/24 06:40 DC Acetaminophen (TYLenol 325MG TAB) 650 mg Q6H PRN PO MILD PAIN (1-3) 12/01/24 08:30 12/02/24 06:45 DC Acetaminophen (TYLenol 500MG TAB) 500 mg Q6H PRN PO TEMP < 101.1 AND/OR HEADACHE 12/02/24 07:00 01/01/25 06:59 Acetaminophen/ Hydrocodone Bitart (NORco 5/325MG) 1 tab Q6H PRN PO MODERATE PAIN (4-6) 12/01/24 08:30 12/06/24 08:29 12/02/24 03:41 1 TAB Al Hydroxide/Mg Hydroxide (MAALox PLUS 30ML) 30 ml Q6H PRN PO INDIGESTION 12/01/24 08:30 12/31/24 08:29 Alprazolam (XANax 0.5MG) 0.5 mg BID PO 12/02/24 09:00 01/01/25 08:59 12/02/24 08:44 0.5 MG Atorvastatin Calcium (LIPItor 40MG) 40 mg DAILY PO 12/02/24 09:00 01/01/25 08:59 12/02/24 08:45 40 MG Ceftriaxone Sodium (Rocephin 2gm Inj) 2 gm Q24H IVPB 12/01/24 08:30 12/01/24 08:29 DC Ceftriaxone Sodium (Rocephin 2gm Inj) 2 gm Q24H IVPB 12/02/24 09:00 12/12/24 08:59 12/02/24 08:43 2 GM Dextrose (D50w) 50 ml AD PRN IV HYPOGLYCEMIA PROTOCOL 12/01/24 08:30 12/31/24 08:29 Diazepam (VALium 5 MG/ML 2 ML SYG) 10 mg Q4H PRN IVP ALCOHOL WITHDRAWAL PROTOCOL 12/02/24 07:00 12/09/24 06:59 12/02/24 09:09 10 MG Diazepam (VALium 5 MG/ML 2 ML SYG) 20 mg Q4H PRN IVP ALCOHOL WITHDRAWAL PROTOCOL 12/02/24 07:00 12/09/24 06:59 Diphenhydramine HCl (BENAdryl INJ) 25 mg Q6H PRN IV SEVERE ITCHING/RASH 12/01/24 08:30 12/31/24 08:29 12/01/24 16:47 25 MG Famotidine (Pepcid 20mg Vial) 20 mg BID IV 12/01/24 09:00 12/02/24 06:38 DC 12/01/24 20:01 20 MG Famotidine (Pepcid 20mg Vial) 20 mg BID PRN IV NAUSEA/VOMITING 12/01/24 08:30 12/01/24 08:24 DC Ferrous Sulfate (Ferrous Sulfate) 325 mg BID PO 12/01/24 09:00 12/31/24 08:59 12/02/24 08:45 325 MG Folic Acid (FOLic ACID 1 MG TABLET) 1 mg DAILY PO 12/02/24 09:00 12/04/24 09:01 12/02/24 08:45 1 MG Gabapentin (NEURontin 100 mg CAP) 100 mg TID PO 12/02/24 09:00 01/01/25 08:59 12/02/24 08:45 100 MG Glucagon (Glucagon 1mg Kit) 1 mg AD PRN IM HYPOGLYCEMIA PROTOCOL 12/01/24 08:30 12/31/24 08:29 Guaifenesin/ Dextromethorphan (RobiTUSSin DM 200/20MG 10ML) 10 ml Q4H PRN PO COUGH 12/01/24 08:30 12/31/24 08:29 Haloperidol Lactate (Haldol Inj) 3 mg ONCE PRN IM ANXIETY/AGITATION 12/01/24 22:30 12/02/24 00:00 DC 12/01/24 22:33 3 MG Haloperidol Lactate (Haldol Inj) 5 mg Q8H PRN IM ANXIETY/AGITATION 12/02/24 00:00 01/01/25 00:00 Heparin Sodium (Porcine) (HEParin 5,000 UNIT VIAL) 5,000 unit BID SQ 12/01/24 09:00 12/31/24 08:59 12/02/24 08:42 5,000 UNIT Hydralazine HCl (APRESOLine 20MG INJ) 10 mg Q6H PRN IV For:SBP above 160;DBP above 90 12/01/24 08:30 12/31/24 08:29 Hydroxyzine HCl (ATArax 25MG TAB) 25 mg TID PO 12/02/24 09:00 01/01/25 08:59 12/02/24 08:44 25 MG Ibuprofen (moTRIN) 600 mg Q6H PRN PO MILD PAIN (1-3) 12/02/24 07:00 01/01/25 06:59 Insulin Human Regular (humuLIN R 100 UNIT/ML 3ML) INSULIN SLIDING SCAL... ACHS SQ 12/01/24 11:30 12/31/24 11:29 Ketorolac Tromethamine (toRADol) 15 mg Q8H PRN IV MODERATE PAIN (4-6) IF NPO 12/01/24 08:30 12/02/24 06:55 DC Lacosamide (VimPAT) 200 mg DAILY PO 12/02/24 09:00 01/01/25 08:59 12/02/24 09:02 200 MG Lactulose (Constulose 20gm/ 30ml Udcup) 10 gm DAILYDINNER PO 12/02/24 17:00 01/01/25 16:59 Lactulose (Constulose 20gm/ 30ml Udcup) 20 gm BID PRN PO CONSTIPATION 12/01/24 08:30 12/31/24 08:29 Levetiracetam (kepPRA 500 MG TABLET) 1,500 mg BID PO 12/02/24 09:00 01/01/25 08:59 12/02/24 08:44 1,500 MG Magnesium Sulfate 50 ml @ 0 mls/hr PROTOCOL IV 12/02/24 11:30 12/02/24 11:15 DC Magnesium Sulfate 50 ml @ 0 mls/hr PROTOCOL PRN IV OTHER [SEE ORDER COMMENTS] 12/01/24 08:30 12/31/24 08:29 Morphine Sulfate (morPHINE 2MG SYG) 1 mg Q4H PRN IVP SEVERE PAIN (7-10) 12/01/24 08:30 12/08/24 08:29 Multivitamins Therapeutic (Multivitamin Tablet) 1 tab DAILY PO 12/02/24 09:00 01/01/25 08:59 Nitroglycerin (Nitrostat) 0.4 mg PROTOCOL PRN SL CHEST PAIN 12/01/24 08:30 12/31/24 08:29 Ondansetron HCl (zoFRAN 4MG INJ) 4 mg Q4H PRN IV NAUSEA 12/02/24 07:00 01/01/25 06:59 Ondansetron HCl (zoFRAN 4MG INJ) 4 mg Q6H PRN IV NAUSEA/VOMITING 12/01/24 08:30 12/02/24 06:39 DC Pantoprazole Sodium (PROTonix 40MG TAB) 40 mg BID PO 12/02/24 09:00 01/01/25 08:59 12/02/24 08:44 40 MG Pharmacy Profile Note (Pharmacy Communication) 1 each PROTOCOL PRN MISC ETOH Withdrawal Score changes 12/02/24 07:00 12/09/24 06:59 Potassium Chloride 100 ml @ 100 mls/hr AD PRN IV POTASSIUM PROTOCOL 12/01/24 08:30 12/31/24 08:29 Potassium Chloride (K-Dur/Klor-Con 20meq) 20 meq AD PRN PO POTASSIUM PROTOCOL 12/01/24 08:30 12/31/24 08:29 Potassium Chloride (KCl 10% Elixir 20meq/15ml) 20 meq AD PRN PO POTASSIUM PROTOCOL 12/01/24 08:30 12/31/24 08:29 Quetiapine Fumarate (SEROquel 25 mg TAB) 12.5 mg BID PRN PO aggitation 12/02/24 07:00 01/01/25 06:59 Sertraline HCl (ZOloft 50 mg tab) 25 mg DAILY PO 12/02/24 09:00 01/01/25 08:59 12/02/24 08:45 25 MG Sodium Chloride 1,000 ml @ 100 mls/hr Q10H IV 12/01/24 08:30 12/31/24 08:29 12/01/24 20:00 100 MLS/HR Thiamine HCl 100 mg/Folic Acid 1 mg/Multivitamins/ Minerals 10 ml/ Sodium Chloride 1,011.2 ml @ 100 mls/ hr Q24H IV 12/02/24 08:00 12/04/24 18:07 Vitamin B Complex (Vitamin B-12) 1,000 mcg DAILY PO 12/01/24 09:00 12/31/24 08:59 12/02/24 08:45 1,000 MCG Zolpidem Tartrate (AmbIEN) 5 mg HS PRN PO INSOMNIA 12/01/24 08:30 12/31/24 08:29 12/01/24 20:51 5 MG DIAGNOSTICS / RADIOLOGY: [ ] ASSESSMENT: [ Acute metabolic encephalopathy POA Acute hypoxic respiratory failure POA Moderate light generalized encephalomalacia in right cerebral hemisphere with ex vacuo dilation in right lateral ventricle per CT head brain Electrolyte imbalance hypokalemia K3.5 POA Acute kidney injury POA Toxicology positive for benzodiazepines and opiates POA Possible hallucinations POA Multifactorial anemia POA Iron-deficiency anemia POA Acute complicated cystitis POA History of seizures History of stroke History of TIA History of appendectomy History of cervical mass s/p polypectomy] PLAN: [Medical-surgical floor with tele Psychologist evaluation pending [facility] protocol place. Seroquel 12.5 mg b.i.d. p.r.n. for agitation added to the patient's home regimen neuro tele consulted UA positive for leukocytosis Urine culture pending Blood culture pending Toxicology positive for benzodiazepines and opiates A.m. labs Rocephin for UTI Normal saline at 100 mL/hour Chest x-ray negative CT head brain showed moderate generalized encephalomalacia in right cerebral hemisphere with ex vacuo dilation in right lateral ventricle 2D echo EF55 to 60% normal function MRI brain pending Ultrasound carotid pending Ultrasound arterial pending Ultrasound venous Doppler pending CT abdomen/pelvis pending PT pending Case management pending Speech evaluation for swallowing pending Home medication reconciled by CAR TRIMMER 12/01/2024] ATTESTATION BY PHYSICIAN I have seen and examined the patient. I reviewed the documentation, medical decision making, and treatment plan as noted by the mid-level provider above. I agree with the findings and plan of care. LAMONT SEYMOUR MD, KATARZYNA B [employer]INE H[employer]ER Dec 02, 2024 11:28
[2024-12-02] MEDS ORDERED: MAGNESIUM 2GM PREMIX 50ML 50 ML IV SCH (11:30)
--- NOTE | 2024-12-02 11:40 | NUR ---
BEHAVIOR Patient removed IV. Site free from signs/symptoms of infection. Clean and dressed. Will attempt insertion of new IV line.
[2024-12-02] MEDS: MAGNESIUM 2GM PREMIX 50ML 50 ML IV PRN (12:07)
--- NOTE | 2024-12-02 12:33 | NUR ---
TELE NEURO CONSULT PERFORMED AT BEDSIDE, VIRTUAL
--- NOTE | 2024-12-02 13:15 | NUR ---
BEHAVIOR Patient continues to attempt to get out of bed unassisted. Bed alarm in place. Continues to pull at IV site and wrap IV tubing around her hand. In and out of confusion. Oriented to person only. Safety measures continue in place. All needs addressed. Call light and personal belongings in reach.
--- NOTE | 2024-12-02 15:15 | NUR ---
PT IN AND OUT OF CONFUSION, CANNOT RECALL WHETHER SHE WALKS OR IF SHE HAS ANYONE AT HOME TO HELP HER. Addendum: 12/02/24 at 1549 by KATE CARDENAS PT Amended: Links added.
--- NOTE | 2024-12-02 16:00 | NUR ---
BEHAVIOR Patient continues to attempt to get out of bed unassisted. Continues to pull at IV site. REdirection, distraction performed. Patient room within eyesight of nursing station. Room door open. Bed alarm on, in low position.
[2024-12-02] MEDS: LACTULOSE 20 GM/30 ML UDCUP PO SCH (17:00)
--- NOTE | 2024-12-02 17:30 | NUR ---
BEHAVIORS Patient continues with behaviors documented previously. Informed by charge nurse that patient will be transferring to room 312 and placed on one-to-one observation. Will call report to
--- NOTE | 2024-12-02 17:46 | HMCIMG ---
EXAM: MR Brain With Stem Without IV Contrast. CLINICAL HISTORY: Pain. TECHNIQUE: Multiplanar multi-sequence MRI of the brain. CONTRAST: None. COMPARISON: CT brain dated December 01, 2024 FINDINGS: There is generalized prominence of the sulci, gyri, and cisternal spaces suggestive of diffuse age-related parenchymal atrophy. Encephalomalacia in the right parietotemporal and occipital regions with ex vacuo dilatation of the right lateral ventricle. No diffusion restriction. No evidence of acute cortical infarction, hemorrhage, mass, or mass effect. No hydrocephalus. No abnormal extra-axial fluid collection is present. The marrow signal within the skull base and calvarium is intact. The paranasal sinuses and mastoid air cells are clear. IMPRESSION: 1. No acute intracranial abnormality or mass. 2. Diffuse age-related neuro parenchymal atrophy with encephalomalacia in the right parieto-temporal and occipital lobes. Compared to the previous CT dated December 01, 2024, no significant interval change. /[place]
--- NOTE | 2024-12-02 17:55 | NUR ---
ATTEMPT TO CALL REPORT. Nurse at bedside providing care. Will return call to extension [phone].
--- NOTE | 2024-12-02 18:05 | NUR ---
REPORT CALLED TO STEFAN ZAMORA ONCE ROOM IS CLEAN, PATIENT WILL BE TRANSPORTED.
--- NOTE | 2024-12-02 22:53 | HMCIMG ---
EXAM: US for Deep Venous Thrombosis, bilateral Lower Extremity. CLINICAL HISTORY: DVT. TECHNIQUE: Real-time ultrasound scan of the veins of the bilateral lower extremity with color Doppler flow, spectral waveform analysis, and compression. COMPARISON: None. FINDINGS: DEEP VEINS: The common femoral, superficial femoral, and popliteal veins are echolucent and compressible. There is normal color Doppler flow throughout. The visualized calf veins appear patent. SOFT TISSUES: No popliteal fossa cyst or other abnormalities. IMPRESSION: No deep venous thrombosis is evident on bilateral lower extremity examination. /[place]
--- NOTE | 2024-12-02 22:59 | HMCIMG ---
EXAM: US Duplex Bilateral Lower Extremity Arteries. CLINICAL HISTORY: Dizziness. TECHNIQUE: Real-time ultrasound scan of the arteries of the bilateral lower extremities with 2-D bar scale, color Doppler flow, and spectral waveform analysis. COMPARISON: None provided. FINDINGS: RIGHT LOWER EXTREMITY: Common femoral artery (OPEN CLAIMS REPRESENTATIVE): PSV 103 cm/s, triphasic, no occlusion or significant stenosis Superficial femoral artery (SFA): Proximal PSV 122 cm/s, triphasic Mid PSV 100 cm/s, triphasic Distal PSV 92 cm/s, triphasic Popliteal artery: Proximal PSV 49 cm/s, triphasic Distal PSV 62 cm/s, triphasic Posterior tibial artery (CANDY CUTTER HAND): PSV 69 cm/s, triphasic Anterior tibial artery (GENOVEVA, distal): PSV 82 cm/s, triphasic Dorsalis pedis artery (DPA): PSV 77 cm/s, triphasic LEFT LOWER EXTREMITY: Common femoral artery (OPEN CLAIMS REPRESENTATIVE): PSV 99 cm/s, triphasic, no occlusion or significant stenosis Superficial femoral artery (SFA): Proximal PSV 106 cm/s, triphasic Mid PSV 91 cm/s, triphasic Distal PSV 95 cm/s, triphasic Popliteal artery: Proximal PSV 61 cm/s, triphasic Distal PSV 101 cm/s, triphasic Posterior tibial artery (CANDY CUTTER HAND): PSV 75 cm/s, triphasic Anterior tibial artery (GENOVEVA, distal): PSV 82 cm/s, triphasic Dorsalis pedis artery (DPA): PSV 67 cm/s, triphasic IMPRESSION: No evidence of flow-limiting stenosis or occlusion in either lower extremity artery. /[place]
[2024-12-03] VITALS (7 sets, daily range): BP systolic 98–129; BP diastolic 52–71; PULSE 55–78; RESP 16–20; TEMP 97.2–98.2; O2SAT 95
[2024-12-03 06:11] LABS: IMMATURE GRANULOCYTE ABSOLUTE 0.04 K/uL (0-1); NUCLEATED RED BLOOD CELLS 0.0 % (0.0-0.19); PLATELET COUNT (AUTO) 113 K/uL (130-400); RED BLOOD CELL COUNT(AUTO) 3.69 MIL/uL (4.00-5.50); RED CELL DISTRIBUTION WIDTH 14.0 % (11.0-15.5); WHITE BLOOD COUNT (AUTO) 4.0 K/uL (4.8-10.8)
[2024-12-03 06:26] LABS: ASPARTATE AMINOTRANSFERASE 17.0 U/L (10-37); CREATININE 0.9 mg/dL (0.5-1.0); GLOMERULAR FILTR. RATE CALC 75.0 mL/min (>90); GLUCOSE,RANDOM 101.0 mg/dL (70-105); SODIUM SERUM 145.0 mmol/L (136-145); TOTAL PROTEIN, SERUM 6.1 g/dL (6.0-8.3); UREA NITROGEN, BLOOD 13.0 mg/dL (7-18)
[2024-12-03] MEDS: THIAMINE HCL 100 MG, FOLic ACID 5 MG/ML VIAL 1 MG, M.V.I. IV [ADULT] 10 ML in 0.9%NACL ... IV SCH (08:00)
--- NOTE | 2024-12-03 09:43 | PN ---
[facility] PROGRESS NOTE Date of Service: Dec 03, 2024 Time of Service: 09:[address] Seymour SUBJECTIVE: [ 12/01 Patient is 58 years old female who came to emergency department via EMS from home. 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 DTRs are not available for the review. After she got home she was noted to be agitated and yelling as per neighbors and she was very confused and disoriented. Neighbors called EMS and brought patient back to [facility] for evaluation. Patient is not able to answer simple questions for me neither follow any commands at this moment.] Chronic medical problems include chronic anemia, history of a cervical mass s/p polypectomy, history of seizure disorder, metabolic encephalopathy, history of alcohol abuse-patient states that she quit many years ago, anemia, appendectomy, WBC 4.0 hemoglobin 10.3 hematocrit 31.1 platelets 115. Dullmc717 potassium 3.5 CO228 creatinine 1.0 GFR 66 calcium eight CK 94 Urinalysis positive for leukocy tosis. Toxicology positive for opiates and benzodiazepines. None of the medications were given to the patient at the hospital stay at this moment.. Head CT showed moderate generalized encephalomalacia in the right cerebral hemisphere with ex vacuo dilation of the right lateral ventricle. Mild to moderate generalized brain atrophy and chronic microvascular ischemic white matter disease. Chest x-ray negative. We will admit patient under hospitalist care for further evaluation/recommendations. Once patient will be little bit more alert we will decide if week consult Psychologist for further evaluation. We will continue to monitor patient in the meantime. A.m. labsv 12/02 patient was seen by nurse practitioner and physician during rounding in room 407. Patient's 2D echo came back EF55 to 60% normal function. MRI brain pending ultrasound carotid pending ultrasound arterial pending ultrasound venous pending CT abdomen/pelvis pending. Urine culture and blood culture still pending. WBC is trending down. Patient was evaluated by the psychologist and is recommending [facility] protocol start patient on Seroquel 12.5 mg b.i.d. PRN for a gitation. At this moment we will reconsult blue smiley neuro for confusion/altered mental status. We will also reconsult psychologist for re-evaluation of the home medications. Patient right now it is more alert and oriented and more talkative compared to yesterday were she was very disoriented and extremely sleepy. Patient is more calm but does not know where she is at she believes she is at home and also believe that nurse practitioner who saw her today was her family member who underwent a surgery. Home medications reconciled We will continue to monitor patient in the meantime. A.m. labs. 12/03 patient was seen by nurse practitioner and physician during rounding in room 312. Patient underwent MRI of the brain and showed remote infarct which is a chronic. Ultrasound arterial negative. Ultrasound venous negative for DVT. CT abdomen/pelvis was performed pending results. Patient refused ultrasound carotid. Patient was evaluated by the food editor and is recommending 2D echo with a bubble. CTA head. CTA neck. MRI brain with and without the contrast and speech therapy. Everything was ordered by nurse practitioner. At this moment we are still pending re-evaluation of the psychologist to evaluate the patient's medicine and behavioral. Continue one-to-one. We will continue to monitor patient in the meantime. A.m. labs REVIEW OF SYSTEMS PHYSICAL EXAM GENERAL APPEARANCE: The patient is alert and oriented x2 to self only in no acute cardiopulmonary distress. NEUROLOGICAL: Cranial nerves II-XII grossly intact. Motor is 5/5 in bilateral upper and lower extremities proximal to distal. No sensory deficits. HEENT: Face is symmetric. Pupils are equal and reactive. Extraocular movements are intact. NECK: Supple. No JVD. No thyromegaly. No submental, submandibular, pre- /postauricular, occipital or supraclavicular lymphadenopathy. CHEST: Normal chest expansion. No Telemetry. LUNGS: Absence of any rales, rhonchi or any wheezing. CARDIOVASCULAR: Regular. S1 and S2 normal. No appreciable rubs, murmurs or gallops. ABDOMEN: Soft, nontender, and nondistended. There is no rebound, voluntary guarding, or rigidity. : Deferred. No Mccarthy. EXTREMITIES: Non-edematous and not cyanotic. No clubbing. Good capillary refill. SKIN: Multiple skin scabs on bilateral lower extremities Vital Signs (last 8hr) Date Time Temp Pulse Resp B/P (MAP) Pulse Ox O2 Delivery O2 Flow Rate FiO2 12/03/24 07:59 98.2 62 18 119/68 94 Room Air 12/03/24 04:06 97.5 78 19 128/71 95 Room Air LABS: Laboratory: Test 12/03/24 05:45 12/02/24 10:42 12/02/24 06:14 12/01/24 10:32 Range/Units White Blood Count 4.0 L 4.8-10.8 K/uL Red Blood Count 3.69 L 4.00-5.50 MIL/uL Hemoglobin 10.8 L 12.0-16.0 g/dL Hematocrit 32.3 L 36-48 % Mean Corpuscular Volume 87.5 79-99 fL Mean Corpuscular Hemoglobin 29.3 27.0-33.0 pg Mean Corpuscular Hemoglobin Concent 33.4 32.0-36.0 g/dL Red Cell Distribution Width 14.0 11.0-15.5 % Platelet Count 113 L 130-400 K/uL Mean Platelet Volume 10.7 H 7.5-10.5 fL Immature Granulocyte % (Auto) 1.0 0-1 % Neutrophils (%) (Auto) 38.7 L 40.0-77.0 % Lymphocytes (%) (Auto) 49.0 21.0-51.0 % Monocytes (%) (Auto) 7.8 3.0-13.0 % Eosinophils (%) (Auto) 3.0 0.0-8.0 % Basophils (%) (Auto) 0.5 0.0-5.0 % Neutrophils # (Auto) 1.5 L 1.8-7.7 K/uL Lymphocytes # (Auto) 2.0 1.0-4.8 K/uL Monocytes # (Auto) 0.3 0.1-1.0 K/uL Eosinophils # (Auto) 0.12 0.00-0.70 K/uL Basophils # (Auto) 0.02 0.00-0.20 K/uL Absolute Immature Granulocyte (auto 0.04 0-1 K/uL Nucleated Red Blood Cells 0.0 0.0-0.19 % Sodium Level 145 136-145 mmol/L Potassium Level 3.5 3.5-5.1 mmol/L Chloride Level 109 101-111 mmol/L Carbon Dioxide Level 28 21-32 mmol/L Blood Urea Nitrogen 13 7-18 mg/dL Creatinine 0.9 0.5-1.0 mg/dL Glomerular Filtration Rate Calc 75 >90 mL/min Random Glucose 101 70-105 mg/dL Total Calcium 8.6 8.5-10.1 mg/dL Magnesium Level 1.60 L 1.80-2.40 mg/dL Total Bilirubin 0.4 # 0.2-1.0 mg/dL Aspartate Amino Transf (AST/SGOT) 17 10-37 U/L Alanine Aminotransferase (ALT/SGPT) 22 12-78 U/L Alkaline Phosphatase 101 50-136 U/L Total Protein 6.1 6.0-8.3 g/dL Albumin 2.9 L 3.5-5.0 g/dL Whole Blood Glucose 111 H 70-110 MG/DL Hemoglobin A1c 5.2 4.0-6.0 % Estimated Average Glucose (eAG) 103 70-126 mg/dL Lactic Acid Level 1.6 0.8-2.5 mmol/L Direct Bilirubin 0.1 0.0-0.3 mg/dL Ammonia 21 11-32 umol/L Total Creatine Kinase 121 # 21-232 U/L B-Type Natriuretic Peptide 158 H 0-100 pg/mL Amylase Level 38 25-115 U/L Lipase 43 16-77 U/L Procalcitonin < 0.05 L 0.05-0.5 ng/mL Thyroid Stimulating Hormone (TSH) 1.71 # 0.36-3.74 uIU/mL Serum Alcohol < 3 0-10 mg/dL SARS-CoV-2 Antigen (Rapid) PRESUMPTIVE NEGATIVE NEGATIVE Current Medications Medications (Trade) Dose Ordered Sig/Giorgio Route PRN Reason Start Time Stop Time Status Last Admin Dose Admin Acetaminophen (TYLenol 325MG TAB) 650 mg Q4H PRN PO MILD PAIN (1-3) 12/01/24 08:30 12/01/24 08:23 DC Acetaminophen (TYLenol 325MG TAB) 650 mg Q6H PRN PO TEMPERATURE GREATER THAN 101.5 12/01/24 08:30 12/02/24 06:40 DC Acetaminophen (TYLenol 325MG TAB) 650 mg Q6H PRN PO MILD PAIN (1-3) 12/01/24 08:30 12/02/24 06:45 DC Acetaminophen (TYLenol 500MG TAB) 500 mg Q6H PRN PO TEMP < 101.1 AND/OR HEADACHE 12/02/24 07:00 01/01/25 06:59 Acetaminophen/ Hydrocodone Bitart (NORco 5/325MG) 1 tab Q6H PRN PO MODERATE PAIN (4-6) 12/01/24 08:30 12/06/24 08:29 12/03/24 09:19 1 TAB Al Hydroxide/Mg Hydroxide (MAALox PLUS 30ML) 30 ml Q6H PRN PO INDIGESTION 12/01/24 08:30 12/31/24 08:29 Alprazolam (XANax 0.5MG) 0.5 mg BID PO 12/02/24 09:00 01/01/25 08:59 12/03/24 09:11 0.5 MG Atorvastatin Calcium (LIPItor 40MG) 40 mg DAILY PO 12/02/24 09:00 01/01/25 08:59 12/03/24 09:11 40 MG Ceftriaxone Sodium (Rocephin 2gm Inj) 2 gm Q24H IVPB 12/01/24 08:30 12/01/24 08:29 DC Ceftriaxone Sodium (Rocephin 2gm Inj) 2 gm Q24H IVPB 12/02/24 09:00 12/12/24 08:59 12/03/24 09:11 2 GM Dextrose (D50w) 50 ml AD PRN IV HYPOGLYCEMIA PROTOCOL 12/01/24 08:30 12/31/24 08:29 Diazepam (VALium 5 MG/ML 2 ML SYG) 10 mg Q4H PRN IVP ALCOHOL WITHDRAWAL PROTOCOL 12/02/24 07:00 12/09/24 06:59 12/02/24 09:09 10 MG Diazepam (VALium 5 MG/ML 2 ML SYG) 20 mg Q4H PRN IVP ALCOHOL WITHDRAWAL PROTOCOL 12/02/24 07:00 12/09/24 06:59 12/02/24 16:26 20 MG Diphenhydramine HCl (BENAdryl INJ) 25 mg Q6H PRN IV SEVERE ITCHING/RASH 12/01/24 08:30 12/31/24 08:29 12/01/24 16:47 25 MG Famotidine (Pepcid 20mg Vial) 20 mg BID IV 12/01/24 09:00 12/02/24 06:38 DC 12/01/24 20:01 20 MG Famotidine (Pepcid 20mg Vial) 20 mg BID PRN IV NAUSEA/VOMITING 12/01/24 08:30 12/01/24 08:24 DC Ferrous Sulfate (Ferrous Sulfate) 325 mg BID PO 12/01/24 09:00 12/31/24 08:59 12/03/24 09:12 325 MG Folic Acid (FOLic ACID 1 MG TABLET) 1 mg DAILY PO 12/02/24 09:00 12/04/24 09:01 12/03/24 09:12 1 MG Gabapentin (NEURontin 100 mg CAP) 100 mg TID PO 12/02/24 09:00 01/01/25 08:59 12/03/24 09:11 100 MG Glucagon (Glucagon 1mg Kit) 1 mg AD PRN IM HYPOGLYCEMIA PROTOCOL 12/01/24 08:30 12/31/24 08:29 Guaifenesin/ Dextromethorphan (RobiTUSSin DM 200/20MG 10ML) 10 ml Q4H PRN PO COUGH 12/01/24 08:30 12/31/24 08:29 Haloperidol Lactate (Haldol Inj) 3 mg ONCE PRN IM ANXIETY/AGITATION 12/01/24 22:30 12/02/24 00:00 DC 12/01/24 22:33 3 MG Haloperidol Lactate (Haldol Inj) 5 mg Q8H PRN IM ANXIETY/AGITATION 12/02/24 00:00 01/01/25 00:00 Heparin Sodium (Porcine) (HEParin 5,000 UNIT VIAL) 5,000 unit BID SQ 12/01/24 09:00 12/31/24 08:59 12/03/24 09:26 5,000 UNIT Hydralazine HCl (APRESOLine 20MG INJ) 10 mg Q6H PRN IV For:SBP above 160;DBP above 90 12/01/24 08:30 12/31/24 08:29 Hydroxyzine HCl (ATArax 25MG TAB) 25 mg TID PO 12/02/24 09:00 01/01/25 08:59 12/03/24 09:12 25 MG Ibuprofen (moTRIN) 600 mg Q6H PRN PO MILD PAIN (1-3) 12/02/24 07:00 01/01/25 06:59 12/02/24 14:17 600 MG Insulin Human Regular (humuLIN R 100 UNIT/ML 3ML) INSULIN SLIDING SCAL... ACHS SQ 12/01/24 11:30 12/31/24 11:29 Ketorolac Tromethamine (toRADol) 15 mg Q8H PRN IV MODERATE PAIN (4-6) IF NPO 12/01/24 08:30 12/02/24 06:55 DC Lacosamide (VimPAT) 200 mg DAILY PO 12/02/24 09:00 01/01/25 08:59 12/02/24 09:02 200 MG Lactulose (Constulose 20gm/ 30ml Udcup) 10 gm DAILYDINNER PO 12/02/24 17:00 01/01/25 16:59 Lactulose (Constulose 20gm/ 30ml Udcup) 20 gm BID PRN PO CONSTIPATION 12/01/24 08:30 12/31/24 08:29 Levetiracetam (kepPRA 500 MG TABLET) 1,500 mg BID PO 12/02/24 09:00 01/01/25 08:59 12/03/24 09:12 1,500 MG Magnesium Sulfate 50 ml @ 0 mls/hr PROTOCOL IV 12/02/24 11:30 12/02/24 11:15 DC Magnesium Sulfate 50 ml @ 0 mls/hr PROTOCOL PRN IV OTHER [SEE ORDER COMMENTS] 12/01/24 08:30 12/31/24 08:29 12/02/24 12:07 0 MLS/HR Morphine Sulfate (morPHINE 2MG SYG) 1 mg Q4H PRN IVP SEVERE PAIN (7-10) 12/01/24 08:30 12/08/24 08:29 Multivitamins Therapeutic (Multivitamin Tablet) 1 tab DAILY PO 12/02/24 09:00 01/01/25 08:59 12/03/24 09:11 1 TAB Nitroglycerin (Nitrostat) 0.4 mg PROTOCOL PRN SL CHEST PAIN 12/01/24 08:30 12/31/24 08:29 Ondansetron HCl (zoFRAN 4MG INJ) 4 mg Q4H PRN IV NAUSEA 12/02/24 07:00 01/01/25 06:59 Ondansetron HCl (zoFRAN 4MG INJ) 4 mg Q6H PRN IV NAUSEA/VOMITING 12/01/24 08:30 12/02/24 06:39 DC Pantoprazole Sodium (PROTonix 40MG TAB) 40 mg BID PO 12/02/24 09:00 01/01/25 08:59 12/03/24 09:12 40 MG Pharmacy Profile Note (Pharmacy Communication) 1 each PROTOCOL PRN MISC ETOH Withdrawal Score changes 12/02/24 07:00 12/09/24 06:59 Potassium Chloride 100 ml @ 100 mls/hr AD PRN IV POTASSIUM PROTOCOL 12/01/24 08:30 12/31/24 08:29 Potassium Chloride (K-Dur/Klor-Con 20meq) 20 meq AD PRN PO POTASSIUM PROTOCOL 12/01/24 08:30 12/31/24 08:29 Potassium Chloride (KCl 10% Elixir 20meq/15ml) 20 meq AD PRN PO POTASSIUM PROTOCOL 12/01/24 08:30 12/31/24 08:29 Quetiapine Fumarate (SEROquel 25 mg TAB) 12.5 mg BID PRN PO aggitation 12/02/24 07:00 01/01/25 06:59 Sertraline HCl (ZOloft 50 mg tab) 25 mg DAILY PO 12/02/24 09:00 01/01/25 08:59 12/03/24 09:12 25 MG Sodium Chloride 1,000 ml @ 100 mls/hr Q10H IV 12/01/24 08:30 12/31/24 08:29 12/01/24 20:00 100 MLS/HR Thiamine HCl 100 mg/Folic Acid 1 mg/Multivitamins/ Minerals 10 ml/ Sodium Chloride 1,011.2 ml @ 100 mls/ hr Q24H IV 12/02/24 08:00 12/04/24 18:07 Vitamin B Complex (Vitamin B-12) 1,000 mcg DAILY PO 12/01/24 09:00 12/31/24 08:59 12/03/24 09:12 1,000 MCG Zolpidem Tartrate (AmbIEN) 5 mg HS PRN PO INSOMNIA 12/01/24 08:30 12/31/24 08:29 12/01/24 20:51 5 MG DIAGNOSTICS / RADIOLOGY: [ ] ASSESSMENT: [ Acute metabolic encephalopathy POA Acute hypoxic respiratory failure POA Moderate light generalized encephalomalacia in right cerebral hemisphere with ex vacuo dilation in right lateral ventricle per CT head brain Electrolyte imbalance hypokalemia K3.5 POA Acute kidney injury POA Toxicology positive for benzodiazepines and opiates POA Possible hallucinations POA Multifactorial anemia POA Iron-deficiency anemia POA Acute complicated cystitis POA History of seizures History of stroke History of TIA History of appendectomy History of cervical mass s/p polypectomy] PLAN: [Patient was evaluated by the neurologist recommendations is follow below 2D echo pending CTA head/neck pending MRI brain with and without contrast pending Patient was already evaluated by the speech therapist patient continues on GI soft bland diet. Medical-surgical floor with tele Psychologist reevaluation pending [facility] protocol place. Seroquel 12.5 mg b.i.d. p.r.n. for agitation added to the patient's home regimen UA positive for leukocytosis Urine culture pending Blood culture pending Toxicology positive for benzodiazepines and opiates A.m. labs Rocephin for UTI Normal saline at 100 mL/hour Chest x-ray negative CT head brain showed moderate generalized encephalomalacia in right cerebral hemisphere with ex vacuo dilation in right lateral ventricle 2D echo EF55 to 60% normal function MRI brain pending Ultrasound carotid patient refused Ultrasound arterial negative Ultrasound venous Doppler negative CT abdomen/pelvis pending PT pending Case management pending Home medication reconciled by [employer] BACK T[employer]ER 12/01/2024] ATTESTATION BY PHYSICIAN I have seen and examined the patient. I reviewed the documentation, medical decision making, and treatment plan as noted by the mid-level provider above. I agree with the findings and plan of care. LAMONT SEYMOUR MD, KATARZYNA B COOK SOUP Dec 03, 2024 09:43
--- NOTE | 2024-12-03 09:49 | HMCIMG ---
CT ABDOMEN/PELVIS W/O CONTRAST REASON: severe abd pain COMPARISON: None. FINDINGS: Lung bases are clear. There are no focal liver lesions. The liver has lobulated contour suggesting of cirrhosis. The left kidney has multiple nonobstructing calculi. The right kidney has no calculi identified. There is no evidence of any mass or obstructive uropathy... Spleen and pancreas appear unremarkable. The gallbladder demonstrate a solitary gallstone in the dependent portion of the gallbladder lumen.. Bowel loops appear unremarkable. This includes normal appearance of the appendix There is no evidence of free fluid or intraperitoneal air. There are no focal fluid collections. Aorta and retroperitoneum appear normal as do pelvic soft tissue structures. The anterior abdominal wall is intact. Osseous structures appear unremarkable. There is disc disease with loss of disc height at L5-S1. At [employer] structures is not seen suggesting is surgically absent. There is no mass or free fluid seen in the pelvis. IMPRESSION: 1. Liver has lobulated contour suggesting of cirrhosis 2. Cholelithiasis with solitary stone in the gallbladder lumen.. 3. Disc disease with loss of disc height at L5-S1. 4. Nonobstructing calculi seen in left kidney CT was performed with one or more following dose reduction techniques: automated exposure control, adjustment of the mA and kv according to patient's size, or use of a iterative reconstruction technique.
[2024-12-03] MEDS ORDERED: IOHEXOL 350 MG/ML 100ML INFUS..BTL IV ONE (11:47)
[2024-12-03] MEDS: PoTASSium chloRIDE 20MEQ ER 20 MEQ ERTAB PO ONE (14:07)
--- NOTE | 2024-12-03 16:11 | NUR ---
Nutritional Note: Chart, meds, and labs Reviewed. Pt confused. Pt lives alone with HH as per SS. Current diet GI soft bland Recommend: -continue diet -Ensure Max BID -Continue folic acid, mvi, iron. -Consider Vit D check - Electrolyte replacements per protocol -Monitor feeding tolerance, %, wt, and labs -Document PO intake and wt daily. -If No BM >3days consider bowel stimulant. -Consider appetite stimulant if intake remains <75%for 3 days. -Schedule outpatient RD f/u for long-term nutrition care. - Notify RD if additional nutrition concerns arise. SEE RD Nutritional Assessment for additional assessment information. Addendum: 12/03/24 at [address] Amended: Links added.
--- NOTE | 2024-12-03 16:20 | HMCSR ---
APPROVED REPORT EXAM: Two-dimensional and M-mode echocardiogram with Doppler and color Doppler. Study Details: TIA INDICATION ICD: tia vs stroke vs seizure vs c 2D Dimensions RVDd3.3 cmLVEF(%)70.7 (>50%)LVED Vol(simp.)91.0 mL IVSd0.8 (0.7-1.1cm)FS(%)40 %LVES Vol(simp.)37.4 mL LVDd4.6 (3.8-5.6cm)LA (2D)3.8 (1.6-4.0cm)LVEF(%, simp.)59 % PWd0.5 (0.7-1.1cm)Ao Root(2D)3.0 (2.0-3.7cm)LA ESV INDEX (BP)24.16 mL/m2 IVSs1.1 cmLVOT diam1.7 (1.8-2.4cm) LVDs2.7 (2.5-4.0cm) PWs1.1 cm Deformation Strain Apical 410.4 % Apical 212.9 % Apical 310.6 % Global Lichcc42.3 % M-Mode Dimensions EPSS0.3 cm LA (MM)4.1 (1.6-4.0cm) Ao Root(MM)2.5 (2.0-3.7cm) Aortic Valve AoV Vmax1.0 m/Fabiana Peak GR4.4 mmHgLVOT Vmax1.1 m/s AoV VTI0.2 mAo Mean GR2.3 mmHgLVOT VTI0.26 m JEAN CLAUDE (VMAX)2.46 cm2AVA (VTI) 2.5 cm2 Mitral Valve MV E Vmax90.1 cm/sDECEL Egie189 ms MV A Vmax81.1 cm/sP 1/2 T55 ms E/A ratio1.1MVA (PHT)4.0 cm2 TDI E/E' Tysnuf73.9E/E' Zqnuiwi64.8 Medial E' Peak V6.47 cm/sLateral E' Peak V8.34 cm/s Pulmonary Valve PV Vmax0.9 m/sPV VTI0.22 mPV Mean GR1.9 mmHg PV Peak GR3.2 mmHg Left Ventricle The left ventricle is normal size. There is normal LV segmental wall motion. Global strain of -11%. T here is normal left ventricular wall thickness. The LVEF is 55-60%. Stage I diastolic dysfunction. Right Ventricle The right ventricle is normal size. The right ventricular systolic function is normal. Atria The left atrium size is normal. The interatrial septum is intact with no evidence for an atrial septa l defect. The right atrium size is normal. Aortic Valve The aortic valve is not well visualized. No aortic regurgitation is present. There is no aortic valvu lar stenosis. Mitral Valve Mild posterior mitral annular calcification present. There is no evidence of significant mitral regur gitation. There is no mitral valve stenosis. Tricuspid Valve The tricuspid valve is normal in structure. Trace tricuspid regurgitation. Pulmonic Valve The pulmonary valve is normal in structure. There is no pulmonic valvular regurgitation. Great Vessels The aortic root is normal in size. The ascending aorta is normal in size. The IVC is normal in size a nd collapses >50% with inspiration. Pericardium There is no pericardial effusion. Conclusion The LVEF is 55-60%. Stage I diastolic dysfunction. There is normal LV segmental wall motion. Global strain of -11%.
[2024-12-04] VITALS (8 sets, daily range): BP systolic 105–124; BP diastolic 50–74; PULSE 58–70; RESP 16–20; TEMP 97.5–98.1; O2SAT 97
[2024-12-04 05:42] LABS: IMMATURE GRANULOCYTE ABSOLUTE 0.02 K/uL (0-1); NUCLEATED RED BLOOD CELLS 0.0 % (0.0-0.19); PLATELET COUNT (AUTO) 118 K/uL (130-400); RED BLOOD CELL COUNT(AUTO) 3.51 MIL/uL (4.00-5.50); RED CELL DISTRIBUTION WIDTH 14.0 % (11.0-15.5); WHITE BLOOD COUNT (AUTO) 3.8 K/uL (4.8-10.8)
[2024-12-04 06:03] LABS: ASPARTATE AMINOTRANSFERASE 15.0 U/L (10-37); CREATININE 0.9 mg/dL (0.5-1.0); GLOMERULAR FILTR. RATE CALC 75.0 mL/min (>90); GLUCOSE,RANDOM 108.0 mg/dL (70-105); SODIUM SERUM 143.0 mmol/L (136-145); TOTAL PROTEIN, SERUM 6.0 g/dL (6.0-8.3); UREA NITROGEN, BLOOD 15.0 mg/dL (7-18)
--- NOTE | 2024-12-04 11:46 | HMCIMG ---
EXAM: MR Brain with Intravenous Contrast. CLINICAL HISTORY: Stroke versus TIA versus seizure. TECHNIQUE: Multisequence, multiplanar magnetic resonance images acquired of the brain with intravenous contrast. COMPARISON: Noncontrast MRI dated 12/02/24. FINDINGS: BRAIN: Large area of encephalomalacia with surrounding gliosis is seen in the right cerebral hemisphere. No intracranial mass. No midline shift or extra-axial fluid collection. No cerebellar tonsillar ectopia. No abnormal enhancement. The central arterial and venous flow voids are patent. VENTRICLES: No hydrocephalus, apart from ex vacuo dilatation of the right lateral ventricle, predominantly involving the occipital and temporal horns. ORBITS: The orbits are normal. SINUSES AND MASTOIDS: The sinuses and mastoid air cells are clear. BONES: No acute fracture or aggressive-appearing osseous lesion. IMPRESSION: Redemonstrated chronic right hemispheric encephalomalacia, suggesting remote infarct. No abnormal post contrast-enhancement. /Hannacroix
[2024-12-04] MEDS ORDERED: MAGNESIUM 2GM PREMIX 50ML 50 ML IV SCH (12:00)
--- NOTE | 2024-12-04 14:22 | PN ---
[facility] PROGRESS NOTE Date of Service: Dec 04, 2024 Time of Service: 14:18 SUBJECTIVE: [ 12/01 Patient is 58 years old female who came to emergency department via EMS from home. 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 DTRs are not available for the review. After she got home she was noted to be agitated and yelling as per neighbors and she was very confused and disoriented. Neighbors called EMS and brought patient back to [facility] for evaluation. Patient is not able to answer simple questions for me neither follow any commands at this moment.] Chronic medical problems include chronic anemia, history of a cervical mass s/p polypectomy, history of seizure disorder, metabolic encephalopathy, history of alcohol abuse-patient states that she quit many years ago, anemia, appendectomy, WBC 4.0 hemoglobin 10.3 hematocrit 31.1 platelets 115. [id number] potassium 3.5 CO228 creatinine 1.0 GFR 66 calcium eight CK 94 Urinalysis positive for leukocytosis. Toxicology positive for opiates and benzodiazepines. None of the medications were given to the patient at the hospital stay at this moment.. Head CT showed moderate generalized encephalomalacia in the right cerebral hemisphere with ex vacuo dilation of the right lateral ventricle. Mild to moderate generalized brain atrophy and chronic microvascular ischemic white matter disease. Chest x-ray negative. We will admit patient under hospitalist care for further evaluation/recommendations. Once patient will be little bit more alert we will decide if week consult Psychologist for further evaluation. We will continue to monitor patient in the meantime. A.m. labsv 12/02 patient was seen by nurse practitioner and physician during rounding in room 407. Patient's 2D echo came back [id number] to 60% normal function. MRI brain pending ultrasound carotid pending ultrasound arterial pending ultrasound venous pending CT abdomen/pelvis pending. Urine culture and blood culture still pending. WBC is trending down. Patient was evaluated by the psychologist and is recommending [facility] protocol start patient on Seroquel 12.5 mg b.i.d. PRN for agitation. At this moment we will reconsult blue smiley neuro for confusion/altered mental status. We will also reconsult psychologist for re-evaluation of the home medications. Patient right now it is more alert and oriented and more talkative compared to yesterday were she was very disoriented and extremely sleepy. Patient is more calm but does not know where she is at she believes she is at home and also believe that nurse practitioner who saw her today was her family member who underwent a surgery. Home medications reconc iled We will continue to monitor patient in the meantime. A.m. labs. 12/03 patient was seen by nurse practitioner and physician during rounding in room 312. Patient underwent MRI of the brain and showed remote infarct which is a chronic. Ultrasound arterial negative. Ultrasound venous negative for DVT. CT abdomen/pelvis was performed pending results. Patient refused ultrasound carotid. Patient was evaluated by the supervisor electronics inspection and is recommending 2D echo with a bubble. CTA head. CTA neck. MRI brain with and without the contrast and speech therapy. Everything was ordered by nurse practitioner. At this moment we are still pending re-evaluation of the psychologist to evaluate the patient's medicine and behavioral. Continue one-to-one. We will continue to monitor patient in the meantime. A.m. labs 12/04 58 years recently discharged home from [facility] in [place]. After she got home she was noted to be agitated and yelling as per neighbors and she was very confused and disoriented. Neighbors called EMS and brought patient back to [facility] for evaluation. Patient who admitted under impression of acute metabolic encephalopathy. Toxicology screen positive for benzodiazepines and opiates. CT head no acute findings. Brain MRI no acute intracranial abnormalities. CT abdomen findings consistent with liver cirrhosis. Pending Psychiatric input and recommendation. REVIEW OF SYSTEMS PHYSICAL EXAM GENERAL APPEARANCE: The patient is alert and oriented x2 to self only in no acute cardiopulmonary distress. NEUROLOGICAL: Cranial nerves II-XII grossly intact. Motor is 5/5 in bilateral upper and lower extremities proximal to distal. No sensory deficits. HEENT: Face is symmetric. Pupils are equal and reactive. Extraocular movements are intact. NECK: Supple. No JVD. No thyromegaly. No submental, submandibular, pre- /postauricular, occipital or supraclavicular lymphadenopathy. CHEST: Normal chest expansion. No Telemetry. LUNGS: Absence of any rales, rhonchi or any wheezing. CARDIOVASCULAR: Regular. S1 and S2 normal. No appreciable rubs, murmurs or gallops. ABDOMEN: Soft, nontender, and nondistended. There is no rebound, voluntary guarding, or rigidity. : Deferred. No Mccarthy. EXTREMITIES: Non-edematous and not cyanotic. No clubbing. Good capillary refill. SKIN: Multiple skin scabs on bilateral lower extremities Vital Signs (last 8hr) Date Time Temp Pulse Resp B/P (MAP) Pulse Ox O2 Delivery O2 Flow Rate FiO2 12/04/24 11:13 97.5 60 20 124/70 99 Room Air 21 12/04/24 07:52 98.1 65 18 114/50 97 Room Air 21 LABS: Laboratory: Test 12/04/24 11:44 12/04/24 05:34 Range/Units Whole Blood Glucose 142 H 70-110 MG/DL Bedside Glucose Comment Notified Nurse White Blood Count 3.8 L 4.8-10.8 K/uL Red Blood Count 3.51 L 4.00-5.50 MIL/uL Hemoglobin 10.4 L 12.0-16.0 g/dL Hematocrit 31.0 L 36-48 % Mean Corpuscular Volume 88.3 79-99 fL Mean Corpuscular Hemoglobin 29.6 27.0-33.0 pg Mean Corpuscular Hemoglobin Concent 33.5 32.0-36.0 g/dL Red Cell Distribution Width 14.0 11.0-15.5 % Platelet Count 118 L 130-400 K/uL Mean Platelet Volume 10.5 7.5-10.5 fL Immature Granulocyte % (Auto) 0.5 0-1 % Neutrophils (%) (Auto) 45.5 40.0-77.0 % Lymphocytes (%) (Auto) 43.6 21.0-51.0 % Monocytes (%) (Auto) 6.5 3.0-13.0 % Eosinophils (%) (Auto) 3.1 0.0-8.0 % Basophils (%) (Auto) 0.8 0.0-5.0 % Neutrophils # (Auto) 1.7 L 1.8-7.7 K/uL Lymphocytes # (Auto) 1.7 1.0-4.8 K/uL Monocytes # (Auto) 0.3 0.1-1.0 K/uL Eosinophils # (Auto) 0.12 0.00-0.70 K/uL Basophils # (Auto) 0.03 0.00-0.20 K/uL Absolute Immature Granulocyte (auto 0.02 0-1 K/uL Nucleated Red Blood Cells 0.0 0.0-0.19 % Sodium Level 143 136-145 mmol/L Potassium Level 3.9 3.5-5.1 mmol/L Chloride Level 108 101-111 mmol/L Carbon Dioxide Level 25 21-32 mmol/L Blood Urea Nitrogen 15 7-18 mg/dL Creatinine 0.9 0.5-1.0 mg/dL Glomerular Filtration Rate Calc 75 >90 mL/min Random Glucose 108 H 70-105 mg/dL Total Calcium 8.7 8.5-10.1 mg/dL Magnesium Level 1.50 L 1.80-2.40 mg/dL Total Bilirubin 0.3 # 0.2-1.0 mg/dL Aspartate Amino Transf (AST/SGOT) 15 10-37 U/L Alanine Aminotransferase (ALT/SGPT) 19 12-78 U/L Alkaline Phosphatase 103 50-136 U/L Total Protein 6.0 6.0-8.3 g/dL Albumin 2.9 L 3.5-5.0 g/dL Current Medications Medications (Trade) Dose Ordered Sig/Giorgio Route PRN Reason Start Time Stop Time Status Last Admin Dose Admin Acetaminophen (TYLenol 325MG TAB) 650 mg Q4H PRN PO MILD PAIN (1-3) 12/01/24 08:30 12/01/24 08:23 DC Acetaminophen (TYLenol 325MG TAB) 650 mg Q6H PRN PO TEMPERATURE GREATER THAN 101.5 12/01/24 08:30 12/02/24 06:40 DC Acetaminophen (TYLenol 325MG TAB) 650 mg Q6H PRN PO MILD PAIN (1-3) 12/01/24 08:30 12/02/24 06:45 DC Acetaminophen (TYLenol 500MG TAB) 500 mg Q6H PRN PO TEMP < 101.1 AND/OR HEADACHE 12/02/24 07:00 01/01/25 06:59 Acetaminophen/ Hydrocodone Bitart (NORco 5/325MG) 1 tab Q6H PRN PO MODERATE PAIN (4-6) 12/01/24 08:30 12/06/24 08:29 12/03/24 09:19 1 TAB Al Hydroxide/Mg Hydroxide (MAALox PLUS 30ML) 30 ml Q6H PRN PO INDIGESTION 12/01/24 08:30 12/31/24 08:29 Alprazolam (XANax 0.5MG) 0.5 mg BID PO 12/02/24 09:00 01/01/25 08:59 12/04/24 08:18 0.5 MG Atorvastatin Calcium (LIPItor 40MG) 40 mg DAILY PO 12/02/24 09:00 01/01/25 08:59 12/04/24 08:18 40 MG Ceftriaxone Sodium (Rocephin 2gm Inj) 2 gm Q24H IVPB 12/01/24 08:30 12/01/24 08:29 DC Ceftriaxone Sodium (Rocephin 2gm Inj) 2 gm Q24H IVPB 12/02/24 09:00 12/12/24 08:59 12/04/24 08:19 2 GM Dextrose (D50w) 50 ml AD PRN IV HYPOGLYCEMIA PROTOCOL 12/01/24 08:30 12/31/24 08:29 Diazepam (VALium 5 MG/ML 2 ML SYG) 10 mg Q4H PRN IVP ALCOHOL WITHDRAWAL PROTOCOL 12/02/24 07:00 12/09/24 06:59 12/02/24 09:09 10 MG Diazepam (VALium 5 MG/ML 2 ML SYG) 20 mg Q4H PRN IVP ALCOHOL WITHDRAWAL PROTOCOL 12/02/24 07:00 12/09/24 06:59 12/02/24 16:26 20 MG Diphenhydramine HCl (BENAdryl INJ) 25 mg Q6H PRN IV SEVERE ITCHING/RASH 12/01/24 08:30 12/31/24 08:29 12/01/24 16:47 25 MG Famotidine (Pepcid 20mg Vial) 20 mg BID IV 12/01/24 09:00 12/02/24 06:38 DC 12/01/24 20:01 20 MG Famotidine (Pepcid 20mg Vial) 20 mg BID PRN IV NAUSEA/VOMITING 12/01/24 08:30 12/01/24 08:24 DC Ferrous Sulfate (Ferrous Sulfate) 325 mg BID PO 12/01/24 09:00 12/31/24 08:59 12/04/24 08:18 325 MG Folic Acid (FOLic ACID 1 MG TABLET) 1 mg DAILY PO 12/02/24 09:00 12/04/24 09:01 DC 12/04/24 08:18 1 MG Gabapentin (NEURontin 100 mg CAP) 100 mg TID PO 12/02/24 09:00 01/01/25 08:59 12/04/24 08:18 100 MG Glucagon (Glucagon 1mg Kit) 1 mg AD PRN IM HYPOGLYCEMIA PROTOCOL 12/01/24 08:30 12/31/24 08:29 Guaifenesin/ Dextromethorphan (RobiTUSSin DM 200/20MG 10ML) 10 ml Q4H PRN PO COUGH 12/01/24 08:30 12/31/24 08:29 Haloperidol Lactate (Haldol Inj) 3 mg ONCE PRN IM ANXIETY/AGITATION 12/01/24 22:30 12/02/24 00:00 DC 12/01/24 22:33 3 MG Haloperidol Lactate (Haldol Inj) 5 mg Q8H PRN IM ANXIETY/AGITATION 12/02/24 00:00 01/01/25 00:00 Heparin Sodium (Porcine) (HEParin 5,000 UNIT VIAL) 5,000 unit BID SQ 12/01/24 09:00 12/31/24 08:59 12/04/24 08:28 5,000 UNIT Hydralazine HCl (APRESOLine 20MG INJ) 10 mg Q6H PRN IV For:SBP above 160;DBP above 90 12/01/24 08:30 12/31/24 08:29 Hydroxyzine HCl (ATArax 25MG TAB) 25 mg TID PO 12/02/24 09:00 01/01/25 08:59 12/04/24 08:18 25 MG Ibuprofen (moTRIN) 600 mg Q6H PRN PO MILD PAIN (1-3) 12/02/24 07:00 01/01/25 06:59 12/02/24 14:17 600 MG Insulin Human Regular (humuLIN R 100 UNIT/ML 3ML) INSULIN SLIDING SCAL... ACHS SQ 12/01/24 11:30 12/31/24 11:29 Ketorolac Tromethamine (toRADol) 15 mg Q8H PRN IV MODERATE PAIN (4-6) IF NPO 12/01/24 08:30 12/02/24 06:55 DC Lacosamide (VimPAT) 200 mg DAILY PO 12/02/24 09:00 01/01/25 08:59 12/02/24 09:02 200 MG Lactulose (Constulose 20gm/ 30ml Udcup) 10 gm DAILYDINNER PO 12/02/24 17:00 01/01/25 16:59 Lactulose (Constulose 20gm/ 30ml Udcup) 20 gm BID PRN PO CONSTIPATION 12/01/24 08:30 12/31/24 08:29 Levetiracetam (kepPRA 500 MG TABLET) 1,500 mg BID PO 12/02/24 09:00 01/01/25 08:59 12/04/24 08:18 1,500 MG Magnesium Sulfate 50 ml @ 0 mls/hr PROTOCOL IV 12/02/24 11:30 12/02/24 11:15 DC Magnesium Sulfate 50 ml @ 0 mls/hr PROTOCOL IV 12/04/24 12:00 12/04/24 11:42 DC Magnesium Sulfate 50 ml @ 0 mls/hr PROTOCOL PRN IV OTHER [SEE ORDER COMMENTS] 12/01/24 08:30 12/31/24 08:29 12/04/24 12:12 0 MLS/HR Morphine Sulfate (morPHINE 2MG SYG) 1 mg Q4H PRN IVP SEVERE PAIN (7-10) 12/01/24 08:30 12/08/24 08:29 Multivitamins Therapeutic (Multivitamin Tablet) 1 tab DAILY PO 12/02/24 09:00 01/01/25 08:59 12/04/24 08:18 1 TAB Nitroglycerin (Nitrostat) 0.4 mg PROTOCOL PRN SL CHEST PAIN 12/01/24 08:30 12/31/24 08:29 Ondansetron HCl (zoFRAN 4MG INJ) 4 mg Q4H PRN IV NAUSEA 12/02/24 07:00 01/01/25 06:59 Ondansetron HCl (zoFRAN 4MG INJ) 4 mg Q6H PRN IV NAUSEA/VOMITING 12/01/24 08:30 12/02/24 06:39 DC Pantoprazole Sodium (PROTonix 40MG TAB) 40 mg BID PO 12/02/24 09:00 01/01/25 08:59 12/04/24 08:18 40 MG Pharmacy Profile Note (Pharmacy Communication) 1 each PROTOCOL PRN MISC ETOH Withdrawal Score changes 12/02/24 07:00 12/09/24 06:59 Potassium Chloride 100 ml @ 100 mls/hr AD PRN IV POTASSIUM PROTOCOL 12/01/24 08:30 12/31/24 08:29 Potassium Chloride (K-Dur/Klor-Con 20meq) 20 meq AD PRN PO POTASSIUM PROTOCOL 12/01/24 08:30 12/31/24 08:29 Potassium Chloride (KCl 10% Elixir 20meq/15ml) 20 meq AD PRN PO POTASSIUM PROTOCOL 12/01/24 08:30 12/31/24 08:29 Quetiapine Fumarate (SEROquel 25 mg TAB) 12.5 mg BID PRN PO aggitation 12/02/24 07:00 01/01/25 06:59 Sertraline HCl (ZOloft 50 mg tab) 25 mg DAILY PO 12/02/24 09:00 01/01/25 08:59 12/04/24 08:18 25 MG Sodium Chloride 1,000 ml @ 100 mls/hr Q10H IV 12/01/24 08:30 12/31/24 08:29 12/01/24 20:00 100 MLS/HR Thiamine HCl 100 mg/Folic Acid 1 mg/Multivitamins/ Minerals 10 ml/ Sodium Chloride 1,011.2 ml @ 100 mls/ hr Q24H IV 12/02/24 08:00 12/04/24 18:07 Vitamin B Complex (Vitamin B-12) 1,000 mcg DAILY PO 12/01/24 09:00 12/31/24 08:59 12/04/24 08:18 1,000 MCG Zolpidem Tartrate (AmbIEN) 5 mg HS PRN PO INSOMNIA 12/01/24 08:30 12/31/24 08:29 12/01/24 20:51 5 MG DIAGNOSTICS / RADIOLOGY: [ ] ASSESSMENT: [ Acute metabolic encephalopathy POA Acute hypoxic respiratory failure POA Moderate light generalized encephalomalacia in right cerebral hemisphere with ex vacuo dilation in right lateral ventricle per CT head brain Electrolyte imbalance hypokalemia K3.5 POA Acute kidney injury POA Toxicology positive for benzodiazepines and opiates POA Possible hallucinations POA Multifactorial anemia POA Iron-deficiency anemia POA Acute complicated cystitis POA History of seizures History of stroke History of TIA History of appendectomy History of cervical mass s/p polypectomy PLAN: NEURO: Minimize central acting medications as possible. Fall Precautions. Well lighted room through the day and minimize interruptions through the night to prevent acute delirium. PULMONARY: Supplemental 02 as needed BiPAP as necessary, for respiratory distress Titrate Fio2 to keep Spo2 > or = 90% DuoNebs and CPT as needed IS hourly while awake for pulmonary hygiene prn Out of bed to chair as tolerated Maintain aspiration precautions at all times CARDIOVASCULAR: Follow hemodynamics. Vital signs per facility protocol GI & NUTRITION: Continue nutritional support Aspirations precautions Prokinetic agents and laxatives as needed KIDNEYS & ELECTROLYTES: Strict monitoring of intake and output Daily weights Avoid nephrotoxic agents Monitor electrolytes and replace as needed Goal urine output of 30mL/hr or 0.5mL/kg/hr Medications to be dosed according to renal function. Avoid contrast if possible ENDOCRINE: Maintain blood glucose between 100-180 at all times. Insulin sliding scale for blood glucose management Hypoglycemia and hyperglycemia protocol in place INFECTIOUS DISEASE: Trend temperature, WBC and procalcitonin level Follow cultures, deescalate antibiotics as soon as possible. Panculture if new onset fever HEMATOLOGY & COAGULATION: Monitor H&H. Keep Hgb > 7 Transfuse 1 unit of PRBC for Hgb < 7 Transfuse 1 pack of platelets of platelets < 20, 000 Watch for any signs and symptoms of bleeding SKIN: Pressure ulcer prevention per facility protocol Specialty mattress as needed ORTHO/REHAB Continue PT/OT PRN: MEDICATIONS Tylenol 650 mg po every 4 hrs for fever zofran 4 mg IV every 6 hrs for n/v Hydralazine 5 mg IV every 4 hrs systolic pressure > 160 bowel regiment: lactulose 20 gm PO BID PRN constipation Supportive measures: Continue GI and DVT prophylaxis Disposition: Pending improvement in clinical condition. All questions answered time spent: > 35 min LAMONT SEYMOUR MD Dec 04, 2024 14:22
--- NOTE | 2024-12-04 18:43 | HMCIMG ---
2. EXAM: CTA Head with and without Intravenous Contrast. CLINICAL HISTORY: TIA vs Stroke. TECHNIQUE: Axial CTA images of the head performed. Coronal and sagittal reformatted images were generated and reviewed. CT scan done according to ALARA (As Low as Reasonably Achievable). CONTRAST: Omnipaque 350. COMPARISON: None provided. FINDINGS: Anterior cerebral arteries are unremarkable. Anterior communicating artery is opacified. Middle Cerebral arteries are intact. Right middle cerebral artery is small in caliber. Posterior communicating arteries are not opacified. Posterior cerebral arteries are intact. Right posterior cerebral artery is small in caliber. Vertebral arteries are visualized. Basilar artery is unremarkable. Intracranial internal carotid arteries demonstrate normal enhancement. No evidence of aneurysm (greater than 4 mm) or arteriovenous lesion. Large area of encephalomalacia with surrounding gliosis is seen in the right cerebral hemisphere. IMPRESSION: No hemodynamically significant abnormality in the intracranial arteries. Right middle cerebral artery and posterior cerebral artery are small in caliber. Large area of encephalomalacia with surrounding gliosis in the right cerebral hemisphere. 2. EXAM: CTA Neck with and without Intravenous Contrast. CLINICAL HISTORY: TIA vs Stroke. TECHNIQUE: Axial CTA images of the neck performed. Coronal and sagittal reformatted images were generated and reviewed. CT scan done according to ALARA (As Low as Reasonably Achievable). CONTRAST: Omnipaque 350. COMPARISON: None provided. FINDINGS: CCA, Carotid Bulb, ICA, and origin of the ECA are well opacified. Vertebral arteries are well opacified. Jugular veins are not well opacified Included great vessels of the aortic arch are grossly unremarkable. Included lung apices are grossly unremarkable. No acute bony changes. Mild multilevel spondylosis noted. IMPRESSION: Normal CT angiogram of the neck. /[place]
[2024-12-05] VITALS (7 sets, daily range): BP systolic 104–128; BP diastolic 64–86; PULSE 56–83; RESP 16–20; TEMP 97.4–97.9; O2SAT 98
[2024-12-05 05:44] LABS: NUCLEATED RED BLOOD CELLS 0.0 % (0.0-0.19); PLATELET COUNT (AUTO) 136.0 K/uL (130-400); RED BLOOD CELL COUNT(AUTO) 3.75 MIL/uL (4.00-5.50); RED CELL DISTRIBUTION WIDTH 14.0 % (11.0-15.5); WHITE BLOOD COUNT (AUTO) 4.4 K/uL (4.8-10.8)
[2024-12-05 05:59] LABS: ASPARTATE AMINOTRANSFERASE 16.0 U/L (10-37); CREATININE 0.9 mg/dL (0.5-1.0); GLOMERULAR FILTR. RATE CALC 75.0 mL/min (>90); GLUCOSE,RANDOM 95.0 mg/dL (70-105); SODIUM SERUM 143.0 mmol/L (136-145); TOTAL PROTEIN, SERUM 6.1 g/dL (6.0-8.3); UREA NITROGEN, BLOOD 14.0 mg/dL (7-18)
--- NOTE | 2024-12-05 10:30 | NUR ---
CALLED PHARMACY TO ASK REGARDING THE VIMPAT NOT BEING IN OMNICELL. ALSO ASKED ABOUT THE BANANA BAG. PHARMACY VERBALIZED THE BANANA BAG WAS COMPLETED YESTERDAY. THE VIMPAT HAS NOT BEEN RESTOCKED CURRENTLY.
--- NOTE | 2024-12-05 16:57 | NUR ---
CM NOTE CM discussed plan of care with attending MD. Reports patient is no longer confused and is at baseline. CM explained that patient has assistance at home but was no longer approved to return to a SNF by insurance. Patient has active provider services with [facility]. CM called patient's provider An [phone]. States patient is w/c bound and is able to move around home with w/c. CM explained that patient is ready for d/c to home. States she is unable to care for patient alessia but is available tomorrow. CM updated attending. Plan for d/c home tomorrow. Addendum: 12/05/24 at 1705 by COY MOREIRA CM Amended: Links added.
--- NOTE | 2024-12-05 18:14 | PN ---
[facility] PROGRESS NOTE Date of Service: Dec 05, 2024 Time of Service: 17:46 SUBJECTIVE: [ 12/01 Patient is 58 years old female who came to emergency department via EMS from home. 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 DTRs are not available for the review. After she got home she was noted to be agitated and yelling as per neighbors and she was very confused and disoriented. Neighbors called EMS and brought patient back to [facility] for evaluation. Patient is not able to answer simple questions for me neither follow any commands at this moment.] Chronic medical problems include chronic anemia, history of stroke, history of a cervical mass s/p polypectomy, history of seizure disorder, metabolic encephalopathy, history of alcohol abuse-patient states that she quit many years ago, anemia, appendectomy, WBC 4.0 hemoglobin 10.3 hematocrit 31.1 platelets 115. [id number] potassium 3.5 CO228 creatinine 1.0 GFR 66 calcium eight CK 94 Urinalysis positive for leukocyt osis. Toxicology positive for opiates and benzodiazepines. None of the medications were given to the patient at the hospital stay at this moment.. Head CT showed moderate generalized encephalomalacia in the right cerebral hemisphere with ex vacuo dilation of the right lateral ventricle. Mild to moderate generalized brain atrophy and chronic microvascular ischemic white matter disease. Chest x-ray negative. We will admit patient under hospitalist care for further evaluation/recommendations. Once patient will be little bit more alert we will decide if week consult Psychologist for further evaluation. We will continue to monitor patient in the meantime. A.m. labsv 12/02 patient was seen by nurse practitioner and physician during rounding in room 407. Patient's 2D echo came back [id number] to 60% normal function. MRI brain pending ultrasound carotid pending ultrasound arterial pending ultrasound venous pending CT abdomen/pelvis pending. Urine culture and blood culture still pending. WBC is trending down. Patient was evaluated by the psychologist and is recommending [facility] protocol start patient on Seroquel 12.5 mg b.i.d. PRN for agitation. At this moment we will reconsult blue smiley neuro for confusion/altered mental status. We will also reconsult psychologist for re- evaluation of the home medications. Patient right now it is more alert and oriented and more talkative compared to yesterday were she was very disoriented and extremely sleepy. Patient is more calm but does not know where she is at she believes she is at home and also believe that nurse practitioner who saw her today was her family member who underwent a surgery. Home medications reconciled We will continue to monitor patient in the meantime. A.m. labs. 12/03 patient was seen by nurse practitioner and physician during rounding in room 312. Patient underwent MRI of the brain and showed remote infarct which is a chronic. Ultrasound arterial negative. Ultrasound venous negative for DVT. CT abdomen/pelvis was performed pending results. Patient refused ultrasound carotid. Patient was evaluated by the survey questionnaire designer and is recommending 2D echo with a bubble. CTA head. CTA neck. MRI brain with and without the contrast and speech therapy. Everything was ordered by nurse practitioner. At this m oment we are still pending re-evaluation of the psychologist to evaluate the patient's medicine and behavioral. Continue one-to-one. We will continue to monitor patient in the meantime. A.m. labs 12/04 58 years recently discharged home from [facility] in [place]. After she got home she was noted to be agitated and yelling as per neighbors and she was very confused and disoriented. Neighbors called EMS and brought patient back to [facility] for evaluation. 12/05/2024: Patient was seen bedside in room 312. Patient states that she is feeling much better than how she felt when she came in. Patient is alert, oriented, and awake. She stated that she needs to walk around to start feel normal again. She states that she has some pelvic pain following her fall last week. She stated that there is a provider at home who was taking care of her before she was admitted to the hospital. The patient has stable vitals today with a blood pressure of 117/76 heart rate of 83. Her home health provider was not available today to receive with the patient after her discharge. The patient will be discharged tomorrow when her provider is available. Patient who admitted under impression of acute metabolic encephalopathy. Toxicology screen positive for benzodiazepines and opiates. CT head no acute findings. Brain MRI no acute intracranial abnormalities. CT abdomen findings consistent with liver cirrhosis. Pending Psychiatric input and recommendation. REVIEW OF SYSTEMS PHYSICAL EXAM GENERAL APPEARANCE: The patient is alert and oriented x2 to self only in no acute cardiopulmonary distress. NEUROLOGICAL: Cranial nerves II-XII grossly intact. Motor is 5/5 in bilateral upper and lower extremities proximal to distal. No sensory deficits. HEENT: Face is symmetric. Pupils are equal and reactive. Extraocular movements are intact. NECK: Supple. No JVD. No thyromegaly. No submental, submandibular, pre- /postauricular, occipital or supraclavicular lymphadenopathy. CHEST: Normal chest expansion. No Telemetry. LUNGS: Absence of any rales, rhonchi or any wheezing. CARDIOVASCULAR: Regular. S1 and S2 normal. No appreciable rubs, murmurs or gallops. ABDOMEN: Soft, nontender, and nondistended. There is no rebound, voluntary guarding, or rigidity. : Deferred. No Mccarthy. EXTREMITIES: Non-edematous and not cyanotic. No clubbing. Good capillary refill. SKIN: Multiple skin scabs on bilateral lower extremities Vital Signs (last 8hr) Date Time Temp Pulse Resp B/P (MAP) Pulse Ox O2 Delivery O2 Flow Rate FiO2 12/05/24 16:00 97.9 83 20 117/76 95 Room Air 12/05/24 12:00 97.9 72 20 128/86 96 Room Air LABS: Laboratory: Test 12/05/24 16:01 12/05/24 05:28 12/04/24 19:40 12/04/24 05:34 Range/Units Whole Blood Glucose 105 70-110 MG/DL White Blood Count 4.4 L 4.8-10.8 K/uL Red Blood Count 3.75 L 4.00-5.50 MIL/uL Hemoglobin 11.2 L 12.0-16.0 g/dL Hematocrit 33.1 L 36-48 % Mean Corpuscular Volume 88.3 79-99 fL Mean Corpuscular Hemoglobin 29.9 27.0-33.0 pg Mean Corpuscular Hemoglobin Concent 33.8 32.0-36.0 g/dL Red Cell Distribution Width 14.0 11.0-15.5 % Platelet Count 136 130-400 K/uL Mean Platelet Volume 10.9 H 7.5-10.5 fL Nucleated Red Blood Cells 0.0 0.0-0.19 % Sodium Level 143 136-145 mmol/L Potassium Level 4.1 3.5-5.1 mmol/L Chloride Level 108 101-111 mmol/L Carbon Dioxide Level 26 21-32 mmol/L Blood Urea Nitrogen 14 7-18 mg/dL Creatinine 0.9 0.5-1.0 mg/dL Glomerular Filtration Rate Calc 75 >90 mL/min Random Glucose 95 70-105 mg/dL Total Calcium 8.9 8.5-10.1 mg/dL Magnesium Level 1.90 1.80-2.40 mg/dL Total Bilirubin 0.4 # 0.2-1.0 mg/dL Aspartate Amino Transf (AST/SGOT) 16 10-37 U/L Alanine Aminotransferase (ALT/SGPT) 18 12-78 U/L Alkaline Phosphatase 109 50-136 U/L Total Protein 6.1 6.0-8.3 g/dL Albumin 3.0 L 3.5-5.0 g/dL Bedside Glucose Comment Protocol Initiated Immature Granulocyte % (Auto) 0.5 0-1 % Neutrophils (%) (Auto) 45.5 40.0-77.0 % Lymphocytes (%) (Auto) 43.6 21.0-51.0 % Monocytes (%) (Auto) 6.5 3.0-13.0 % Eosinophils (%) (Auto) 3.1 0.0-8.0 % Basophils (%) (Auto) 0.8 0.0-5.0 % Neutrophils # (Auto) 1.7 L 1.8-7.7 K/uL Lymphocytes # (Auto) 1.7 1.0-4.8 K/uL Monocytes # (Auto) 0.3 0.1-1.0 K/uL Eosinophils # (Auto) 0.12 0.00-0.70 K/uL Basophils # (Auto) 0.03 0.00-0.20 K/uL Absolute Immature Granulocyte (auto 0.02 0-1 K/uL Current Medications Medications (Trade) Dose Ordered Sig/Giorgio Route PRN Reason Start Time Stop Time Status Last Admin Dose Admin Acetaminophen (TYLenol 325MG TAB) 650 mg Q4H PRN PO MILD PAIN (1-3) 12/01/24 08:30 12/01/24 08:23 DC Acetaminophen (TYLenol 325MG TAB) 650 mg Q6H PRN PO TEMPERATURE GREATER THAN 101.5 12/01/24 08:30 12/02/24 06:40 DC Acetaminophen (TYLenol 325MG TAB) 650 mg Q6H PRN PO MILD PAIN (1-3) 12/01/24 08:30 12/02/24 06:45 DC Acetaminophen (TYLenol 500MG TAB) 500 mg Q6H PRN PO TEMP < 101.1 AND/OR HEADACHE 12/02/24 07:00 01/01/25 06:59 Acetaminophen/ Hydrocodone Bitart (NORco 5/325MG) 1 tab Q6H PRN PO MODERATE PAIN (4-6) 12/01/24 08:30 12/06/24 08:29 12/03/24 09:19 1 TAB Al Hydroxide/Mg Hydroxide (MAALox PLUS 30ML) 30 ml Q6H PRN PO INDIGESTION 12/01/24 08:30 12/31/24 08:29 Alprazolam (XANax 0.25MG) 0.25 mg BID PO 12/05/24 21:00 01/04/25 20:59 Alprazolam (XANax 0.5MG) 0.5 mg BID PO 12/02/24 09:00 12/05/24 14:07 DC 12/05/24 09:32 0.5 MG Atorvastatin Calcium (LIPItor 40MG) 40 mg DAILY PO 12/02/24 09:00 01/01/25 08:59 12/05/24 09:32 40 MG Ceftriaxone Sodium (Rocephin 2gm Inj) 2 gm Q24H IVPB 12/01/24 08:30 12/01/24 08:29 DC Ceftriaxone Sodium (Rocephin 2gm Inj) 2 gm Q24H IVPB 12/02/24 09:00 12/12/24 08:59 12/05/24 09:35 2 GM Dextrose (D50w) 50 ml AD PRN IV HYPOGLYCEMIA PROTOCOL 12/01/24 08:30 12/31/24 08:29 Diazepam (VALium 5 MG/ML 2 ML SYG) 10 mg Q4H PRN IVP ALCOHOL WITHDRAWAL PROTOCOL 12/02/24 07:00 12/09/24 06:59 12/02/24 09:09 10 MG Diazepam (VALium 5 MG/ML 2 ML SYG) 20 mg Q4H PRN IVP ALCOHOL WITHDRAWAL PROTOCOL 12/02/24 07:00 12/09/24 06:59 12/02/24 16:26 20 MG Diphenhydramine HCl (BENAdryl INJ) 25 mg Q6H PRN IV SEVERE ITCHING/RASH 12/01/24 08:30 12/31/24 08:29 12/01/24 16:47 25 MG Famotidine (Pepcid 20mg Vial) 20 mg BID IV 12/01/24 09:00 12/02/24 06:38 DC 12/01/24 20:01 20 MG Famotidine (Pepcid 20mg Vial) 20 mg BID PRN IV NAUSEA/VOMITING 12/01/24 08:30 12/01/24 08:24 DC Ferrous Sulfate (Ferrous Sulfate) 325 mg BID PO 12/01/24 09:00 12/31/24 08:59 12/05/24 09:31 325 MG Folic Acid (FOLic ACID 1 MG TABLET) 1 mg DAILY PO 12/02/24 09:00 12/04/24 09:01 DC 12/04/24 08:18 1 MG Gabapentin (NEURontin 100 mg CAP) 100 mg TID PO 12/02/24 09:00 01/01/25 08:59 12/05/24 14:35 100 MG Glucagon (Glucagon 1mg Kit) 1 mg AD PRN IM HYPOGLYCEMIA PROTOCOL 12/01/24 08:30 12/31/24 08:29 Guaifenesin/ Dextromethorphan (RobiTUSSin DM 200/20MG 10ML) 10 ml Q4H PRN PO COUGH 12/01/24 08:30 12/31/24 08:29 Haloperidol Lactate (Haldol Inj) 3 mg ONCE PRN IM ANXIETY/AGITATION 12/01/24 22:30 12/02/24 00:00 DC 12/01/24 22:33 3 MG Haloperidol Lactate (Haldol Inj) 5 mg Q8H PRN IM ANXIETY/AGITATION 12/02/24 00:00 01/01/25 00:00 Heparin Sodium (Porcine) (HEParin 5,000 UNIT VIAL) 5,000 unit BID SQ 12/01/24 09:00 12/31/24 08:59 12/05/24 09:48 5,000 UNIT Hydralazine HCl (APRESOLine 20MG INJ) 10 mg Q6H PRN IV For:SBP above 160;DBP above 90 12/01/24 08:30 12/31/24 08:29 Hydroxyzine HCl (ATArax 25MG TAB) 25 mg TID PO 12/02/24 09:00 01/01/25 08:59 12/05/24 14:35 25 MG Ibuprofen (moTRIN) 600 mg Q6H PRN PO MILD PAIN (1-3) 12/02/24 07:00 01/01/25 06:59 12/04/24 20:49 600 MG Insulin Human Regular (humuLIN R 100 UNIT/ML 3ML) INSULIN SLIDING SCAL... ACHS SQ 12/01/24 11:30 12/31/24 11:29 Ketorolac Tromethamine (toRADol) 15 mg Q8H PRN IV MODERATE PAIN (4-6) IF NPO 12/01/24 08:30 12/02/24 06:55 DC Lacosamide (VimPAT) 200 mg DAILY PO 12/02/24 09:00 01/01/25 08:59 12/02/24 09:02 200 MG Lactulose (Constulose 20gm/ 30ml Udcup) 10 gm DAILYDINNER PO 12/02/24 17:00 01/01/25 16:59 12/05/24 17:14 10 GM Lactulose (Constulose 20gm/ 30ml Udcup) 20 gm BID PRN PO CONSTIPATION 12/01/24 08:30 12/31/24 08:29 Levetiracetam (kepPRA 500 MG TABLET) 1,500 mg BID PO 12/02/24 09:00 01/01/25 08:59 12/05/24 09:34 1,500 MG Magnesium Sulfate 50 ml @ 0 mls/hr PROTOCOL IV 12/02/24 11:30 12/02/24 11:15 DC Magnesium Sulfate 50 ml @ 0 mls/hr PROTOCOL IV 12/04/24 12:00 12/04/24 11:42 DC Magnesium Sulfate 50 ml @ 0 mls/hr PROTOCOL PRN IV OTHER [SEE ORDER COMMENTS] 12/01/24 08:30 12/31/24 08:29 12/04/24 12:12 0 MLS/HR Morphine Sulfate (morPHINE 2MG SYG) 1 mg Q4H PRN IVP SEVERE PAIN (7-10) 12/01/24 08:30 12/08/24 08:29 Multivitamins Therapeutic (Multivitamin Tablet) 1 tab DAILY PO 12/02/24 09:00 01/01/25 08:59 12/05/24 09:32 1 TAB Nitroglycerin (Nitrostat) 0.4 mg PROTOCOL PRN SL CHEST PAIN 12/01/24 08:30 12/31/24 08:29 Ondansetron HCl (zoFRAN 4MG INJ) 4 mg Q4H PRN IV NAUSEA 12/02/24 07:00 01/01/25 06:59 Ondansetron HCl (zoFRAN 4MG INJ) 4 mg Q6H PRN IV NAUSEA/VOMITING 12/01/24 08:30 12/02/24 06:39 DC Pantoprazole Sodium (PROTonix 40MG TAB) 40 mg BID PO 12/02/24 09:00 01/01/25 08:59 12/05/24 09:33 40 MG Pharmacy Profile Note (Pharmacy Communication) 1 each PROTOCOL PRN MISC ETOH Withdrawal Score changes 12/02/24 07:00 12/09/24 06:59 Potassium Chloride 100 ml @ 100 mls/hr AD PRN IV POTASSIUM PROTOCOL 12/01/24 08:30 12/31/24 08:29 Potassium Chloride (K-Dur/Klor-Con 20meq) 20 meq AD PRN PO POTASSIUM PROTOCOL 12/01/24 08:30 12/31/24 08:29 Potassium Chloride (KCl 10% Elixir 20meq/15ml) 20 meq AD PRN PO POTASSIUM PROTOCOL 12/01/24 08:30 12/31/24 08:29 Quetiapine Fumarate (SEROquel 25 mg TAB) 12.5 mg BID PRN PO aggitation 12/02/24 07:00 01/01/25 06:59 Sertraline HCl (ZOloft 50 mg tab) 25 mg DAILY PO 12/02/24 09:00 01/01/25 08:59 12/05/24 09:33 25 MG Sodium Chloride 1,000 ml @ 100 mls/hr Q10H IV 12/01/24 08:30 12/31/24 08:29 12/01/24 20:00 100 MLS/HR Thiamine HCl 100 mg/Folic Acid 1 mg/Multivitamins/ Minerals 10 ml/ Sodium Chloride 1,011.2 ml @ 100 mls/ hr Q24H IV 12/02/24 08:00 12/04/24 18:07 DC 12/04/24 18:29 100 MLS/HR Vitamin B Complex (Vitamin B-12) 1,000 mcg DAILY PO 12/01/24 09:00 12/31/24 08:59 12/05/24 09:33 1,000 MCG Zolpidem Tartrate (AmbIEN) 5 mg HS PRN PO INSOMNIA 12/01/24 08:30 12/31/24 08:29 12/01/24 20:51 5 MG DIAGNOSTICS / RADIOLOGY: [ ] ASSESSMENT: [ Acute metabolic encephalopathy POA Acute hypoxic respiratory failure POA Moderate light generalized encephalomalacia in right cerebral hemisphere with ex vacuo dilation in right lateral ventricle per CT head brain Electrolyte imbalance hypokalemia K3.5 POA Acute kidney injury POA Toxicology positive for benzodiazepines and opiates POA Possible hallucinations POA Multifactorial anemia POA Iron-deficiency anemia POA Acute complicated cystitis POA History of seizures History of stroke History of TIA History of appendectomy History of cervical mass s/p polypectomy PLAN: Urinary tract infection: -patient was positive for UTI on admission with a positive leukocyte esterase. -started on Rocephin(Day 1) -continue to monitor for now. Acute metabolic encephalopathy: -patient was found to have altered mental status on admission, now apparently resolved. -laboratory evaluation revealed a normal serum ammonia, normal lactic acid levels, normal blood gas. -CT head and neck, MRI brain, head and neck CT angiogram were all negative for any acute abnormalities. -neurology evaluation requested, pending evaluation. -psychiatry was consulted and they signed off on the patient. -continue to monitor for now. Iron-deficiency anemia: -patient's hemoglobin on admission was 10.3, now at 11.2. -serum iron panel revealed reduced iron, reduced iron binding capacity, and reduced transferrin saturation confirming iron-deficiency anemia. -currently receiving ferrous sulfate 325 mg BD p.o. -continue to monitor using serial labs. PRN: MEDICATIONS Tylenol 650 mg po every 4 hrs for fever zofran 4 mg IV every 6 hrs for n/v Hydralazine 5 mg IV every 4 hrs systolic pressure > 160 bowel regiment: lactulose 20 gm PO BID PRN constipation Supportive measures: Continue GI and DVT prophylaxis Disposition: Pending improvement in clinical condition. All questions answered time spent: > 35 min CARMEN WASHINGTON MD Dec 05, 2024 18:13
--- NOTE | 2024-12-05 20:57 | NUR ---
SCHEDULED MEDICATIONS ALL MEDICATIONS WERE PLACED IN MEDICATION CUP RECORDER MADE PATIENT AWARE OF THE MEDICATIONS SHE WAS GETTING AT THIS TIME, PER PATIENT HER XANAX IS NOT INCLUDED WITH HER MEDICATIONS. I RECORDER WENT OVER HER MEDICATIONS ONCE AGAIN AND ALSO SHOWED HER THE PACKAGING WHERE MEDICATION HAD BEEN TAKEN OUT OF INCLUDING THE XANAX. PATIENT CONSUMED HER MEDICATIONS BUT INSISTS ON XANAX NOT BEING PART OF THE MEDICATIONS GIVEN. CHARGE NURSE TRAVIS ESCOBEDO RN MADE AWARE.
[2024-12-06] VITALS: BP 120/66; PULSE 63; RESP 18; TEMP 98.2
[2024-12-06 04:00] VITALS: BP 126/63; PULSE 80; RESP 20; TEMP 97.8
[2024-12-06 05:56] LABS: IMMATURE GRANULOCYTE ABSOLUTE 0.03 K/uL (0-1); NUCLEATED RED BLOOD CELLS 0.0 % (0.0-0.19); PLATELET COUNT (AUTO) 133 K/uL (130-400); RED BLOOD CELL COUNT(AUTO) 3.70 MIL/uL (4.00-5.50); RED CELL DISTRIBUTION WIDTH 14.3 % (11.0-15.5); WHITE BLOOD COUNT (AUTO) 5.2 K/uL (4.8-10.8)
[2024-12-06 06:25] LABS: CREATININE 0.9 mg/dL (0.5-1.0); GLOMERULAR FILTR. RATE CALC 75.0 mL/min (>90); GLUCOSE,RANDOM 84.0 mg/dL (70-105); SODIUM SERUM 139.0 mmol/L (136-145); UREA NITROGEN, BLOOD 17.0 mg/dL (7-18)
[2024-12-06 08:00] VITALS: BP 110/58; PULSE 61; RESP 20; TEMP 97.7
[2024-12-06 09:18] VITALS: O2SAT 100
[2024-12-06] MEDS: MAGNESIUM OXIDE 400 MG TABLET PO ONE (11:27)
[2024-12-06 12:00] VITALS: BP 122/80; PULSE 93; RESP 19; TEMP 97.3
--- NOTE | 2024-12-06 16:45 | DS ---
Discharge Summary Hospital Course Summary: Patient is 58 years old female who came to emergency department via EMS from home. 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 DTRs are not available for the review. After she got home she was noted to be agitated and yelling as per neighbors and she was very confused and disoriented. Neighbors called EMS and brought patient back to [facility] for evaluation. Patient was not able to answer simple questions for me neither follow any commands. Chronic medical problems include chronic anemia, history of a cervical mass s/p polypectomy, history of seizure disorder, metabolic encephalopathy, history of alcohol abuse-patient states that she quit many years ago, anemia, appendectomy. WBC 4.0 hemoglobin 10.3 hematocrit 31.1 platelets 115. Isethj806 potassium 3.5 CO228 creatinine 1.0 GFR 66 calcium eight CK 94 Urinalysis positive for leukocytosis. Toxicology positive for opiates and benzodiazepines. None of the medications were given to the patient at the hospital stay at this moment. Head CT showed moderate generalized encephalomalacia in the right cerebral hemisphere with ex vacuo dilation of the right lateral ventricle. Mild to moderate generalized brain atrophy and chronic microvascular ischemic white matter disease. Chest x-ray negative. Psychiatry was consulted regarding the patient who evaluated the patient and suggested a metabolic cause for her behavioral disturbances. Echocardiogram performed on 12/01 revealed an ejection fraction of 55-60% with known multiple LV segmental wall motion and no significant abnormalities. CT head was followed up with MRI brain stem without IV contrast which revealed diffuse age-related neuro parenchymal atrophy with encephalomalacia in the right parietotemporal and occipital lobes but no acute intracranial abnormality/mass. Patient was evaluated with arterial ultrasound, venous Doppler, and CT angiogram of the head and neck for evaluation of any peripheral vascular disease which came back as negative. For the patient's UTI she was started on Rocephin 2g IV daily. It was also found to be suffering from iron-deficiency anemia with a hemoglobin of 10.3 on admission, the patient was successfully placed on a ferrous sulfate 325 mg BD p.o.. Patient also had a CT abdomen and pelvis performed during this hospitalization which revealed hepatic contour which was lobulated suggesting of cirrhosis. By 12/04/2024, the patient's condition started to improve. Patient started returning to her baseline with ceasing of her behavioral disturbances. By 12/06/2024, patient was deemed clinically stable to be discharged home with home health. Patient will be discharged home with advice to follow up with her doctors hospital physician within 3-5 days. Drying Room Operator(s): Drying Room Operator: Psychiatry Recommendations: -Patient is not currently suicidal, homicidal or psychotic and she does not require inpatient psychiatric admission at this time -Recommend that inpatient team get home medication list and check PDMP to determine if patient is on benzos and opiates and what doses. -If patient was taking benzos at home recommend restarting at a lower dose, tapering and stopping prior to DC -Recommend CIWA protocol and PRN Ativan for possible benzo withdrawal until home medications are determined and a plan is in place -Monitor for opiate withdrawal as UDS was + for opiates -Consider additional head imaging (MRI) -Consider neurology consult -Recommend Seroquel 12.5-25 mg BID PRN for acute agitation, aggression or psychosis -Psychiatry signing off Procedure(s): [address] [address] IMAGING REPORT Signed PATIENT: ZORAIDA SAMAYOA MR#: [id number] : 1965 SEX: F AGE: 58 LOCATION: [facility] ORDER 7 STATUS: [facility] REPORT#: [id number] SERVICE 4 REASON: [facility] ORDERING PHYSICIAN: ROBIN DAY MD PROCEDURE: CXR1VW - CHEST 1VW EXAM: CR Chest, 1 view CLINICAL HISTORY: Altered mental status. COMPARISON: Chest radiograph dated 06/20/2011. FINDINGS: The lungs show no infiltrates or other acute findings. No pleural effusion or pneumothorax. Interval mild cardiomegaly. No acute osseous abnormality. IMPRESSION: Interval mild cardiomegaly. No acute infiltrate, effusion, or pneumothorax. /[place] DICTATED BY: MAHIN BARROW Jr., MD DATE: 08/21/25 0628 ELECTRONICALLY SIGNED BY: MAHIN BARROW Jr., MD DATE: 12/01/24627 [facility] [address] [place] [address] IMAGING REPORT Signed PATIENT: ZORAIDA SAMAYOA MR#: [id number] : 1965 SEX: F AGE: 58 LOCATION: [facility] ORDER 5 STATUS: [facility] REPORT#: [id number] SERVICE 5 REASON: AMS ORDERING PHYSICIAN: ROBIN DAY MD PROCEDURE: HEAD WO - CT HEAD/BRAIN W/O CONTRAST EXAM: Non-contrast CT examination of the Brain CLINICAL HISTORY: Altered mental status. TECHNIQUE: Thin collimated axial CT images of the brain were obtained with sagittal and coronal reformatted images also submitted. CT scan is done according to ALARA (As Low as Reasonably Achievable). CONTRAST USED: None. COMPARISON: None provided. FINDINGS: Moderate generalized encephalomalacia in the right cerebral hemisphere with ex-vacuo dilatation of the right lateral ventricle. Mild to moderate generalized brain atrophy and chronic microvascular ischemic white matter disease. No acute intracranial abnormality is present. No acute cortical infarction, hemorrhage, mass, or mass effect. No hydrocephalus or abnormal extra-axial fluid collections. The posterior fossa is unremarkable. The skull base and calvarium are intact. The included portions of the paranasal sinuses and mastoid air cells are clear. Impacted cerumen within the right external auditory canal. IMPRESSION: No acute intracranial abnormality is present. Moderate generalized encephalomalacia in the right cerebral hemisphere with ex-vacuo dilatation of the right lateral ventricle. Mild to moderate generalized brain atrophy and chronic microvascular ischemic white matter disease. If the clinical concern persists, recommend an MRI of the brain, including DWI, for further evaluation. /[place] DICTATED BY: MAHIN BARROW Jr., MD DATE: 12/01/24638 ELECTRONICALLY SIGNED BY: MAHIN BARROW Jr., MD DATE: 12/01/24638 [facility] [address] [place] [id number] IMAGING REPORT Signed PATIENT: ZORAIDA SAMAYOA MR#: [id number] : 1965 SEX: F AGE: 58 LOCATION: [facility] ORDER 1 STATUS: ADM IN [facility] REPORT#: [id number] SERVICE 1 REASON: chf ORDERING PHYSICIAN: SU TABOR APRN PROCEDURE: ECHO CMP - ECHO 2-D COMPLETE APPROVED REPORT EXAM: Two-dimensional and M-mode echocardiogram with Doppler and color Doppler. INDICATION ICD: Heart Failure 2D Dimensions RVDd 3.7 cm LVEF(%) 64.8 (>50%) IVSd 0.6 (0.7-1.1cm) FS(%) 35 % LVDd 4.5 (3.8-5.6cm) LA (2D) 3.6 (1.6-4.0cm) PWd 1.1 (0.7-1.1cm) Ao Root(2D) 2.5 (2.0-3.7cm) LVDs 2.9 (2.5-4.0cm) LVOT diam 1.8 (1.8-2.4cm) Tricuspid Valve TR Vmax 2.4 m/s RVSP 23.3 mmHg TR Peak GR 24.0 mmHg Left Ventricle Left ventricular cavity size is normal. There is normal LV segmental wall motion. There is normal left ventricular wall thickness. LVEF is visually es timated at 55-60%. Not assessed Right Ventricle The right ventricle is normal size. The right ventricular systolic function renard ears normal. Atria The left atrium size is normal. Aortic Valve Aortic valve is not well visualized but no significant valvular abnormalities noted. No aortic regurgitation is present. There is no aortic valvular stenosis. Mitral Valve The mitral valve is normal in structure. Mitral regurgitation is trace by color doppler. Tricuspid Valve The tricuspid valve is normal in structure. There is trivial tricuspid valve regurgitation noted. Pulmonic Valve Pulmonic valve is not well visualized. There is no pulmonic valvular regurgitation. Great Vessels The aortic root is normal in size. The IVC was not visualized. Pericardium No pericardial effusion. Other Information Quality : Limited. Technically limited study due to altered mental status. Conclusion Left ventricular cavity size is normal. LVEF is visually estimated at 55-60% with normal LV segmental wall motion. Diastology was not assesed on this study. The right ventricular systolic function appears normal. Both atria are normal in size. No hemodynamically significant valvular abnormalities. No pericardial effusion. DICTATED BY: ESCOBAR STRICKLAND MD DATE: 12/01/24 1033 ELECTRONICALLY SIGNED BY: ESCOBAR STRICKLAND MD DATE: 12/02/24 1008 [place] [address] [address] IMAGING REPORT Signed PATIENT: ZORAIDA SAMAYOA MR#: [id number] : 1965 SEX: F AGE: 58 LOCATION: [facility] ORDER 1 STATUS: ADM IN [facility] REPORT#: [id number] SERVICE 0812 REASON: Stroke versus TIA versus seizure ORDERING PHYSICIAN: SU TABOR APRN PROCEDURE: BRAIN WO - MR BRAIN WO CON EXAM: MR Brain With Stem Without IV Contrast. CLINICAL HISTORY: Pain. TECHNIQUE: Multiplanar multi-sequence MRI of the brain. CONTRAST: None. COMPARISON: CT brain dated December 01, 2024 FINDINGS: There is generalized prominence of the sulci, gyri, and cisternal spaces suggestive of diffuse age-related parenchymal atrophy. Encephalomalacia in the right parietotemporal and occipital regions with ex vacuo dilatation of the right lateral ventricle. No diffusion restriction. No evidence of acute cortical infarction, hemorrhage, mass, or mass effect. No hydrocephalus. No abnormal extra-axial fluid collection is present. The marrow signal within the skull base and calvarium is intact. The paranasal sinuses and mastoid air cells are clear. IMPRESSION: 1. No acute intracranial abnormality or mass. 2. Diffuse age-related neuro parenchymal atrophy with encephalomalacia in the right parieto-temporal and occipital lobes. Compared to the previous CT dated December 01, 2024, no significant interval change. /[place] DICTATED BY: MAHIN BARROW Jr., MD DATE: 12/04/24 1233 ELECTRONICALLY SIGNED BY: MAHIN BARROW Jr., MD DATE: 12/04/24 1233 [facility] [address] [place] [address] IMAGING REPORT Signed PATIENT: ZORAIDA SAMAYOA MR#: [id number] : 1965 SEX: F AGE: 58 LOCATION: [facility] ORDER 1121 [facility] REPORT#: [id number] SERVICE 1100 REASON: dizziness ORDERING PHYSICIAN: SU TABOR APRN PROCEDURE: ART B LE - US ARTERIAL BILAT LOW EXT DUPL EXAM: US Duplex Bilateral Lower Extremity Arteries. CLINICAL HISTORY: Dizziness. TECHNIQUE: Real-time ultrasound scan of the arteries of the bilateral lower extremities with 2-D bar scale, color Doppler flow, and spectral waveform analysis. COMPARISON: None provided. FINDINGS: RIGHT LOWER EXTREMITY: Common femoral artery (HEAD CAGER): PSV 103 cm/s, triphasic, no occlusion or significant stenosis Superficial femoral artery (SFA): Proximal PSV 122 cm/s, triphasic Mid PSV 100 cm/s, triphasic Distal PSV 92 cm/s, triphasic Popliteal artery: Proximal PSV 49 cm/s, triphasic Distal PSV 62 cm/s, triphasic Posterior tibial artery (CUSTOMER EXPERIENCE ANALYST): PSV 69 cm/s, triphasic Anterior tibial artery (GENOVEVA, distal): PSV 82 cm/s, triphasic Dorsalis pedis artery (DPA): PSV 77 cm/s, triphasic LEFT LOWER EXTREMITY: Common femoral artery (HEAD CAGER): PSV 99 cm/s, triphasic, no occlusion or significant stenosis Superficial femoral artery (SFA): Proximal PSV 106 cm/s, triphasic Mid PSV 91 cm/s, triphasic Distal PSV 95 cm/s, triphasic Popliteal artery: Proximal PSV 61 cm/s, triphasic Distal PSV 101 cm/s, triphasic Posterior tibial artery (CUSTOMER EXPERIENCE ANALYST): PSV 75 cm/s, triphasic Anterior tibial artery (GENOVEVA, distal): PSV 82 cm/s, triphasic Dorsalis pedis artery (DPA): PSV 67 cm/s, triphasic IMPRESSION: No evidence of flow-limiting stenosis or occlusion in either lower extremity artery. /[place] DICTATED BY: MAHIN BARROW Jr., MD DATE: 12/02/242358 ELECTRONICALLY SIGNED BY: MAHIN BARROW Jr., MD DATE: 12/02/242358 [place] [id number] IMAGING REPORT Signed PATIENT: ZORAIDA SAMAYOA MR#: [id number] : 1965 SEX: F AGE: 58 LOCATION: [facility] ORDER 1121 [facility]US: [facility] REPORT#: [id number] SERVICE 1100 REASON: dvt ORDERING PHYSICIAN: SU TABOR APRN PROCEDURE: VENOUS REAL - US VENOUS DOPPLER BILATERAL EXAM: US for Deep Venous Thrombosis, bilateral Lower Extremity. CLINICAL HISTORY: DVT. TECHNIQUE: Real-time ultrasound scan of the veins of the bilateral lower extremity with color Doppler flow, spectral waveform analysis, and compression. COMPARISON: None. FINDINGS: DEEP VEINS: The common femoral, superficial femoral, and popliteal veins are echolucent and compressible. There is normal color Doppler flow throughout. The visualized calf veins appear patent. SOFT TISSUES: No popliteal fossa cyst or other abnormalities. IMPRESSION: No deep venous thrombosis is evident on bilateral lower extremity examination. /[place] DICTATED BY: MAHIN BARROW Jr., MD DATE: 12/02/242352 ELECTRONICALLY SIGNED BY: MAHIN BARROW Jr., MD DATE: 12/02/242352 [place] [address] [address] [id number] IMAGING REPORT Signed PATIENT: ZORAIDA SAMAYOA MR#: [id number] : 1965 SEX: F AGE: 58 LOCATION: [facility] ORDER 1122 STATUS: ADM IN REPORT#: [id number] SERVICE 1120 REASON: severe abd pain ORDERING PHYSICIAN: SU TABOR APRN PROCEDURE: ABD PEL WO - CT ABDOMEN/PELVIS W/O CONTRAST CT ABDOMEN/PELVIS W/O CONTRAST REASON: severe abd pain COMPARISON: None. FINDINGS: Lung bases are clear. There are no focal liver lesions. The liver has lobulated contour suggesting of cirrhosis. The left kidney has multiple nonobstructing calculi. The right kidney has no calculi identified. There is no evidence of any mass or obstructive uropathy... Spleen and pancreas appear unremarkable. The gallbladder demonstrate a solitary gallstone in the dependent portion of the gallbladder lumen.. Bowel loops appear unremarkable. This includes normal appearance of the appendix There is no evidence of free fluid or intraperitoneal air. There are no focal fluid collections. Aorta and retroperitoneum appear normal as do pelvic soft tissue structures. The anterior abdominal wall is intact. Osseous structures appear unremarkable. There is disc disease with loss of disc height at L5-S1. At ROTARY PUMP OPERATOR structures is not seen suggesting is surgically absent. There is no mass or free fluid seen in the pelvis. IMPRESSION: 1. Liver has lobulated contour suggesting of cirrhosis 2. Cholelithiasis with solitary stone in the gallbladder lumen.. 3. Disc disease with loss of disc height at L5-S1. 4. Nonobstructing calculi seen in left kidney CT was performed with one or more following dose reduction techniques: automated exposure control, adjustment of the mA and kv according to patient's size, or use of a iterative reconstruction technique. DICTATED BY: NIXON NETTLES MD DATE: 12/03/2483 ELECTRONICALLY SIGNED BY: NIXON NETTLES MD DATE: 12/03/[address] [address] IMAGING REPORT Signed PATIENT: ZORIADA SAMAYOA MR#: [id number] : 1965 SEX: F AGE: 58 LOCATION: [facility] ORDER 0940 [facility]US: [facility] REPORT#: [id number] SERVICE 5 REASON: tia vs stroke ORDERING PHYSICIAN: SU TABOR APRN PROCEDURE: BRAIN W - MR BRAIN W CON EXAM: MR Brain with Intravenous Contrast. CLINICAL HISTORY: Stroke versus TIA versus seizure. TECHNIQUE: Multisequence, multiplanar magnetic resonance images acquired of the brain with intravenous contrast. COMPARISON: Noncontrast MRI dated 12/02/24. FINDINGS: BRAIN: Large area of encephalomalacia with surrounding gliosis is seen in the right cerebral hemisphere. No intracranial mass. No midline shift or extra-axial fluid collection. No cerebellar tonsillar ectopia. No abnormal enhancement. The central arterial and venous flow voids are patent. VENTRICLES: No hydrocephalus, apart from ex vacuo dilatation of the right lateral ventricle, predominantly involving the occipital and temporal horns. ORBITS: The orbits are normal. SINUSES AND MASTOIDS: The sinuses and mastoid air cells are clear. BONES: No acute fracture or aggressive-appearing osseous lesion. IMPRESSION: Redemonstrated chronic right hemispheric encephalomalacia, suggesting remote infarct. No abnormal post contrast-enhancement. /[place] DICTATED BY: MAHIN BARROW Jr., MD DATE: 12/04/241245 ELECTRONICALLY SIGNED BY: MAHIN BARROW Jr., MD DATE: 12/04/241245 [place] [id number] IMAGING REPORT Signed PATIENT: ZORAIDA SAMAYOA MR#: [id number] : 1965 SEX: F AGE: 58 LOCATION: [facility] ORDER 9 [facility]US: [facility] REPORT#: [id number] SERVICE 5 REASON: tia vs stroke vs seizure vs chf ORDERING PHYSICIAN: SU TABOR APRN PROCEDURE: ECHO CMP - ECHO 2-D COMPLETE APPROVED REPORT EXAM: Two-dimensional and M-mode echocardiogram with Doppler and color Doppler. Study Details: TIA INDICATION ICD: tia vs stroke vs seizure vs c 2D Dimensions RVDd 3.3 cm LVEF(%) 70.7 (>50%) LVED Vol(simp.) 91.0 mL IVSd 0.8 (0.7-1.1cm) FS(%) 40 % LVES Vol(simp.) 37.4 mL LVDd 4.6 (3.8-5.6cm) LA (2D) 3.8 (1.6-4.0cm) LVEF(%, simp.) 59 % PWd 0.5 (0.7-1.1cm) Ao Root(2D) 3.0 (2.0-3.7cm) LA ESV INDEX (BP) 24.16 mL/m2 IVSs 1.1 cm LVOT diam 1.7 (1.8-2.4cm) LVDs 2.7 (2.5-4.0cm) PWs 1.1 cm Deformation Strain Apical 4 10.4 % Apical 2 12.9 % Apical 3 10.6 % Global Strain 11.3 % M-Mode Dimensions EPSS 0.3 cm LA (MM) 4.1 (1.6-4.0cm) Ao Root(MM) 2.5 (2.0-3.7cm) Aortic Valve AoV Vmax 1.0 m/s Ao Peak GR 4.4 mmHg LVOT Vmax 1.1 m/s AoV VTI 0.2 m Ao Mean GR 2.3 mmHg LVOT VTI 0.26 m JEAN CLAUDE (VMAX) 2.46 cm2 JEAN CLAUDE (VTI) 2.5 cm2 Mitral Valve MV E Vmax 90.1 cm/s DECEL Time 192 ms MV A Vmax 81.1 cm/s P 1/2 T 55 ms E/A ratio 1.1 MVA (PHT) 4.0 cm2 TDI E/E' Medial 13.9 E/E' Lateral 10.8 Medial E' Peak V 6.47 cm/s Lateral E' Peak V 8.34 cm/s Pulmonary Valve PV Vmax 0.9 m/s PV VTI 0.22 m PV Mean GR 1.9 mmHg PV Peak GR 3.2 mmHg Left Ventricle The left ventricle is normal size. There is normal LV segmental wall motion. Global strain of -11%. There is normal left ventricular wall thickness. The LVEF is 55-60%. Stage I diastolic dysfunction. Right Ventricle The right ventricle is normal size. The right ventricular systolic function is normal. Atria The left atrium size is normal. The interatrial septum is intact with no evidence for an atrial septal defect. The right atrium size is normal. Aortic Valve The aortic valve is not well visualized. No aortic regurgitation is present. There is no aortic valvular stenosis. Mitral Valve Mild posterior mitral annular calcification present. There is no evidence of significant mitral regurgitation. There is no mitral valve stenosis. Tricuspid Valve The tricuspid valve is normal in structure. Trace tricuspid regurgitation. Pulmonic Valve The pulmonary valve is normal in structure. There is no pulmonic valvular regurgitation. Great Vessels The aortic root is normal in size. The ascending aorta is normal in size. The IVC is normal in size and collapses >50% with inspiration. Pericardium There is no pericardial effusion. Conclusion The LVEF is 55-60%. Stage I diastolic dysfunction. There is normal LV segmental wall motion. Global strain of -11%. DICTATED BY: DESTINI BALLARD MD DATE: 12/03/24 1402 ELECTRONICALLY SIGNED BY: DESTINI BALLARD MD DATE: 12/03/24 1620 [place] [address] IMAGING REPORT Signed PATIENT: ZORAIDA SAMAYOA MR#: [id number] : 1965 SEX: F AGE: 58 LOCATION: [facility] ORDER 0940 STATUS: ADM IN REPORT#: [id number] SERVICE 0936 REASON: tia vs stroke ORDERING PHYSICIAN: SU TABOR APRN PROCEDURE: CTA [facility] - CT ANGIO HEAD AND NECK 2. EXAM: CTA Head with and without Intravenous Contrast. CLINICAL HISTORY: TIA vs Stroke. TECHNIQUE: Axial CTA images of the head performed. Coronal and sagittal reformatted images were generated and reviewed. CT scan done according to ALARA (As Low as Reasonably Achievable). CONTRAST: Omnipaque 350. COMPARISON: None provided. FINDINGS: Anterior cerebral arteries are unremarkable. Anterior communicating artery is opacified. Middle Cerebral arteries are intact. Right middle cerebral artery is small in caliber. Posterior communicating arteries are not opacified. Posterior cerebral arteries are intact. Right posterior cerebral artery is small in caliber. Vertebral arteries are visualized. Basilar artery is unremarkable. Intracranial internal carotid arteries demonstrate normal enhancement. No evidence of aneurysm (greater than 4 mm) or arteriovenous lesion. Large area of encephalomalacia with surrounding gliosis is seen in the right cerebral hemisphere. IMPRESSION: No hemodynamically significant abnormality in the intracranial arteries. Right middle cerebral artery and posterior cerebral artery are small in caliber. Large area of encephalomalacia with surrounding gliosis in the right cerebral hemisphere. 2. EXAM: CTA Neck with and without Intravenous Contrast. CLINICAL HISTORY: TIA vs Stroke. TECHNIQUE: Axial CTA images of the neck performed. Coronal and sagittal reformatted images were generated and reviewed. CT scan done according to ALARA (As Low as Reasonably Achievable). CONTRAST: Omnipaque 350. COMPARISON: None provided. FINDINGS: CCA, Carotid Bulb, ICA, and origin of the ECA are well opacified. Vertebral arteries are well opacified. Jugular veins are not well opacified Included great vessels of the aortic arch are grossly unremarkable. Included lung apices are grossly unremarkable. No acute bony changes. Mild multilevel spondylosis noted. IMPRESSION: Normal CT angiogram of the neck. /[place] DICTATED BY: TIKA TONY MD DATE: 12/04/242027 ELECTRONICALLY SIGNED BY: TIKA TONY MD DATE: 12/04/242027 Assessment/Plan: ASSESSMENT: [ Acute metabolic encephalopathy POA Acute hypoxic respiratory failure POA Moderate light generalized encephalomalacia in right cerebral hemisphere with ex vacuo dilation in right lateral ventricle per CT head brain Electrolyte imbalance hypokalemia K3.5 POA Acute kidney injury POA Toxicology positive for benzodiazepines and opiates POA Possible hallucinations POA Multifactorial anemia POA Iron-deficiency anemia POA Acute complicated cystitis POA History of seizures History of stroke History of TIA History of appendectomy History of cervical mass s/p polypectomy PLAN: Urinary tract infection: -patient was positive for UTI on admission with a positive leukocyte esterase. -started on Rocephin(Day 1) -continue to monitor for now. Acute metabolic encephalopathy: -patient was found to have altered mental status on admission, now apparently resolved. -laboratory evaluation revealed a normal serum ammonia, normal lactic acid levels, normal blood gas. -CT head and neck, MRI brain, head and neck CT angiogram were all negative for any acute abnormalities. -neurology evaluation requested, pending evaluation. -psychiatry was consulted and they signed off on the patient. -continue to monitor for now. Iron-deficiency anemia: -patient's hemoglobin on admission was 10.3, now at 11.2. -serum iron panel revealed reduced iron, reduced iron binding capacity, and reduced transferrin saturation confirming iron-deficiency anemia. -currently receiving ferrous sulfate 325 mg BD p.o. -continue to monitor using serial labs. PRN: MEDICATIONS Tylenol 650 mg po every 4 hrs for fever zofran 4 mg IV every 6 hrs for n/v Hydralazine 5 mg IV every 4 hrs systolic pressure > 160 bowel regiment: lactulose 20 gm PO BID PRN constipation Supportive measures: Continue GI and DVT prophylaxis Disposition: Pending improvement in clinical condition. All questions answered time spent: > 35 min Discharge Instructions: Discharge to:Home with Home Health DC DIET:REGULAR DISCHARGE ACTIVITY:AD MARIANA OTHER D/C INSTRUCTIONS: You were admitted with metabolic encephalopathy, which was caused by urinary tract infection. Your infection was treated in the hospital, and your mental status has improved. You are now stable for discharge. Continue taking all prescribed medications, including your seizure medicine and any antibiotics given, exactly as directed. Drink plenty of fluids, and follow a healthy diet to support recovery. Watch for warning signs such as fever, worsening confusion, weakness, difficulty speaking,new seizures, or any sudden changes in your condition, seek medical care immediately if these occur. Please follow up with your primary care provider within 3-5 days for ongoing monitoring of her infections, seizure disorder, and stroke history. DC FOLLOW UP: Please follow up with your primary care provider within 3-5 days for ongoing monitoring of her infections, seizure disorder, and stroke history. Home Medications: Reported Medications Pantoprazole Sodium (Pantoprazole Sodium) 40 Mg Tablet.dr, 1 TAB PO BID 12/01/24 Lactulose (Lactulose) 10 Gram/15 Ml Solution, 15 ML PO DAILYDINNER 12/01/24 Atorvastatin Calcium (Atorvastatin Calcium) 40 Mg Tablet, 1 TAB PO DAILY 12/01/24 Levetiracetam (Levetiracetam) 750 Mg Tablet, 2 TAB PO BID 12/01/24 Ibuprofen (Ibuprofen) 600 Mg Tablet, 1 TAB PO Q6HPRN PRN for PAIN LEVEL 1 TO 5 12/01/24 Sertraline HCl (Sertraline HCl) 25 Mg Tablet, 1 TAB PO DAILY 12/01/24 Lacosamide (Lacosamide) 200 Mg Tablet, 1 TAB PO DAILY 12/01/24 Gabapentin (Gabapentin) 100 Mg Capsule, 100 CAP PO TID 12/01/24 Hydroxyzine HCl (Hydroxyzine HCl) 50 Mg Tablet, 1 TAB PO TID 12/01/24 Alprazolam (Alprazolam) 0.5 Mg Tablet, 0.5 TAB PO BID 12/01/24 Cyanocobalamin (Vitamin B-12) (Vitamin B-12) 1,000 Mcg Tablet.er, 1000 MCG PO DAILY, TAB 07/20/14 Ferrous Sulfate (Iron) 325 Mg Capsule.er, 325 MG PO BID, CAP 07/20/14 Discontinued Reported Medications Midodrine HCl (Midodrine HCl) 10 Mg Tablet, 1 TAB PO TID 12/01/24 Continued Medications: Alprazolam (Alprazolam) 0.5 Mg Tablet 0.5 TAB PO BID Atorvastatin Calcium (Atorvastatin Calcium) 40 Mg Tablet 1 TAB PO DAILY Cyanocobalamin (Vitamin B-12) (Vitamin B-12) 1,000 Mcg Tablet.er 1000 MCG PO DAILY, TAB Ferrous Sulfate (Iron) 325 Mg Capsule.er 325 MG PO BID, CAP Gabapentin (Gabapentin) 100 Mg Capsule 100 CAP PO TID Hydroxyzine HCl (Hydroxyzine HCl) 50 Mg Tablet 1 TAB PO TID Ibuprofen (Ibuprofen) 600 Mg Tablet 1 TAB PO Q6HPRN PRN for PAIN LEVEL 1 TO 5 Lacosamide (Lacosamide) 200 Mg Tablet 1 TAB PO DAILY Lactulose (Lactulose) 10 Gram/15 Ml Solution 15 ML PO DAILYDINNER Levetiracetam (Levetiracetam) 750 Mg Tablet 2 TAB PO BID Pantoprazole Sodium (Pantoprazole Sodium) 40 Mg Tablet.dr 1 TAB PO BID Sertraline HCl (Sertraline HCl) 25 Mg Tablet 1 TAB PO DAILY Discontinued Medications: Midodrine HCl (Midodrine HCl) 10 Mg Tablet 1 TAB PO TID Time spent arranging discharge: 1-30 minutes ATTESTATION BY PHYSICIAN I have seen and examined the patient. I reviewed the documentation, medical decision making, and treatment plan as noted by the resident provider above. I agree with the findings and plan of care. Misha Brown MD, HEMA MD Dec 06, 2024 16:45
--- NOTE | 2024-12-06 16:45 | NUR ---
DISCHARGE PERIPHERAL IV REMOVED FOR DISCHARGE DISCHARGE EDUCATION AND INSTRUCTIONS PROVIDED TO PATIENT PATIENT AWARE TO FOLLOW UP WITH PCP IN 3-5 DAYS PATIENT AWARE TO CONTINUE MEDICATIONS PRESCRIBED BY MD ALL QUESTIONS ANSWERED.
== END 2024-12-06 16:45 | disposition home or self-care (01) | DRG 463 ==
LOC: EDH 03:28 → EDHIP 03:29 → 4BH 23:50 → 3BH 12-02 18:51
PROVIDERS: ADMIT Internal Medicine; ATTEND Internal Medicine
DX: N30.00 Acute cystitis without hematuria (principal); J96.01 Acute respiratory failure with hypoxia; G93.41 Metabolic encephalopathy; N17.9 Acute kidney failure, unspecified; G31.89 Other specified degenerative diseases of nervous system; D63.8 Anemia in other chronic diseases classified elsewhere; G93.89 Other specified disorders of brain; Z20.822 Contact with and (suspected) exposure to COVID-19; E87.6 Hypokalemia; D50.9 Iron deficiency anemia, unspecified; K74.60 Unspecified cirrhosis of liver; F41.9 Anxiety disorder, unspecified; F91.9 Conduct disorder, unspecified; G31.9 Degenerative disease of nervous system, unspecified; G40.909 Epilepsy, unspecified, not intractable, without status epilepticus; Z86.718 Personal history of other venous thrombosis and embolism; Z86.73 Personal history of transient ischemic attack (TIA), and cerebral infarction without residual deficits; Z90.49 Acquired absence of other specified parts of digestive tract; Z79.899 Other long term (current) drug therapy; Z87.891 Personal history of nicotine dependence
CPT/HCPCS: 36415; 70450; 70496; 70498; 70551; 70552; 71045; 74176; 80048; 80053; 80076; 80305; 81001; 82140; 82150; 82435; 82550; 82803; 82947; 82948; 83036; 83540; 83550; 83605; 83690; 83735; 83880; 84132; 84145; 84146; 84295; 84443; 85018; 85025; 85027; 87040; 87086; 87426; 93005; 93306; 93356; 93925; 93970; 99285; G0378; G0481; J0696; J1200; J1630; J1644; J1815; J3360; J3411; J3475; J3480; J3490; J7030; Q9967